=== PATIENT | male | born 1935 | race Hispanic/Latino ===

== ENCOUNTER 2017-09-05 14:26 | Inpatient (IN) | payer MEDICARE ==
[2017-09-07 17:11] VITALS: BMI 21.0
--- NOTE | 2017-09-07 18:15 | CP.PCM.HP ---
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 The patient was admitted and had echocardiogram and MUGA scan revealing low EF. The patient was then sent to [facility] for AICD placement which occurred on 08/26/17. The patient was noted to have ecchymosis on the left chest and arm upon arrival back to [facility] which are again seen today and are improving. The patient's dyspnea resolved and he is now being admitted to [facility] for further monitoring, PT/OT. He states he normally uses a rolling walker and a cane for ambulation. PMD: Dr. Baldwin Cobol Engineer: Dr. Pan Past Medical History: HTN; Afib; PVD; left heel ulcer (6 months); mandibular cyst Past Surgical History: TAVR - aortic valve replacement 09/2014; Pacemaker 09/2014 - last interrogated was last week; 2 veins removed in his left lower extremity ( 04/2017 and 2014) Medications: Plavix 75mg dialy; Valsartan 40mg daily; Crestor 5mg daily; Xarelta 10mg dialy; protonix 40mg daily; metoprolol tartrate 25mg daily; Lasix 40mg dialy; Fluoxetine 20mg daily Allergies: Penicillin - swelling Family History: Dad - heart disease; at 49yo due to coronary thrombosis; Mom - heart disease; paternal uncle - heart disease Social History: quit smoking 30 years ago; previously smoked for 20 years about 1ppd; drinks 1 beer on a Tuesday; denies illicit drug use; lives home 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 Present on Admission - Present on Admission Any Indicators Present on Admission: No History of DVT/PE: No Review of Systems - Review of Systems Review of Systems: A 12 - Hematologic/Lymphatic Additional comments: A 12 point review of systems was conducted and found to be negative other than what was mentioned in the HPI. Past Patient History - Infectious Disease Hx of Infectious Diseases: None - Past Medical History & Family History Past Medical History?: Yes - Past Social History Smoking Status: Former Smoker - CARDIAC Hx Atrial Fibrillation: Yes Hx Hypertension: Yes Hx Pacemaker: Yes ([employer]) - NEUROLOGICAL Hx Paralysis: No - HEMATOLOGICAL/ONCOLOGICAL Hx Blood Transfusions: No - MUSCULOSKELETAL/RHEUMATOLOGICAL Hx Arthritis: Yes - PSYCHIATRIC Hx Substance Use: No - SURGICAL HISTORY Hx Surgeries: Yes Other/Comment: pacemaker, valve replacement - ANESTHESIA Hx Anesthesia: Yes Hx Anesthesia Reactions: No Hx Malignant Hyperthermia: No Meds Allergies/Adverse Reactions: Allergies Allergy/AdvReac Type Severity Reaction Status Date / Time penicillin V Allergy Severe RASH/HIVES Verified 09/07/17 17:55 Physical Exam - Additional Findings Additional findings: Physical exam: Constitutional- cooperative, awake, alert Head- NCAT, PERRL, left submandibular angle lipoma Eye- PERRL, EOMI ENT- normal exam, MMM. Neck- normal inspection, supple, no JVD Respiratory- CTAB, no wheezes rales rhonchi Cardiovascular- irregular rate and rhythm, +S1, +S2 no MRG GI/Abdominal- normal bowel sounds, soft, no mass, no hsm Skin- warm, dry Extremities Exam- Bilateral lower extremity chronic venous insufficiency. + Left heel ulcer, chronic Neurological Exam- alert, awake, oriented Psych- normal mood, normal affect Assessment & Plan - Assessment and Plan (Free Text) Plan: 1) Deconditioning in the setting of significant cardiomyopathy and low EF - Admit to TCU - Consultation with Dr. Juarez, physiatry - PT/OT - Monitor for dyspnea 2) Atrial Fibrillation CHADS: 3 Patient is on Xarelto 10mg PO daily Metoprolol Succinate 75mg PO daily Echo 08/24 from [facility]- technically difficult and limited study, LV severely dialted, mild asymmetric left ventricular hypertrophy, left ventricle systolic function mildly impaired, EF 40%, global hypokinesis of left ventricle , left ventricle diastolic function is normal 3) History of Aortic Stenosis s/p TAVR 2014 with low Ejection Fraction - AICD placed 08/26 - Continue Xarelto 4) Hypertension Monitor vital signs Cozaar 25mg daily Metoprolol Succinate 75mg daily 5) Right sided foot ulcer - Consult wound care - Patient will need to schedule follow up with Dr. Hassan -Daily dressing changes: MediHoney and cover with OptiFoam Dressing 6) Peripheral Vascular Disease 2 veins removed in his left lower extremity (04/2017 and 2015) Plavix 75 mg PO 1x/day Crestor 5 mg PO 1x/day 7) History of Gastritis Pantoprazole 40mg dialy 8) History of Depression Fluoxetine 20mg PO daily 11) Prophylaxis Protonix 40mg PO daily Xarelto 10mg PO daily
[2017-09-08 07:00] LABS: HEMOGLOBIN 14.8 g/dL (12.0-18.0); MEAN CELL VOLUME 97.6 fl (80.0-94.0); MEAN CORPUSCULAR HEMOGLOBIN 33.5 pg (27.0-31.0); MEAN CORPUSCULAR HGB CONC 34.3 g/dL (33.0-37.0); RBC 4.42 Mil/uL (4.40-5.90); RED CELL DISTRIBUTION WIDTH 14.9 % (11.5-14.5); WHITE BLOOD COUNT 5.6 K/uL (4.8-10.8)
[2017-09-08 07:14] LABS: BLOOD UREA NITROGEN 12 mg/dl (9-20); GFR NON-AFRICAN AMERICAN > 60
[2017-09-08] MEDS: Pantoprazole 40 mg EC Tab PO SCH (10:18)
[2017-09-08] MEDS: Metoprolol Succinate 25 mg XL Tab PO SCH (10:19)
[2017-09-08] MEDS ORDERED: Potassium Chloride 20 mEq ER Tab PO ONE (11:20)
[2017-09-09] MEDS: Pantoprazole 40 mg EC Tab PO SCH (09:08)
[2017-09-09] MEDS: Metoprolol Succinate 25 mg XL Tab PO SCH (09:09)
--- NOTE | 2017-09-09 12:53 | CP.PCM.CON ---
History of Present Illness - History of Present Illness History of Present Illness: Dr Juarez PMR consultation on Yazan Son, born 1935 who has been admitted to the [facility] for [place] following placement of AICD for low EF. He has multiple other medical conditions and even had a near syncopal episode in therapies this morning. EKG done and doing down for further testing. He feels ok now long standing left foot ulcer lives alone Review of Systems - Constitutional Constitutional: absent: Anorexia, Chills - EENT Eyes: absent: Change in Vision Ears: absent: Ear Discharge Nose/Mouth/Throat: absent: Nasal Congestion - Cardiovascular Cardiovascular: absent: Chest Pain, Diaphoresis - Respiratory Respiratory: absent: Dyspnea, Hemoptysis - Gastrointestinal Gastrointestinal: absent: Belching, Constipation Past Patient History - Infectious Disease Hx of Infectious Diseases: None - Past Medical History & Family History Past Medical History?: Yes - Past Social History Smoking Status: Former Smoker Drugs: Denies Home Situation {Lives}: Alone (stairs, uses a QC) - CARDIAC Hx Atrial Fibrillation: Yes Hx Hypertension: Yes Hx Pacemaker: Yes ([employer]) - PULMONARY Hx Bronchitis: Yes - NEUROLOGICAL Hx Paralysis: No - HEMATOLOGICAL/ONCOLOGICAL Hx Blood Transfusions: No - MUSCULOSKELETAL/RHEUMATOLOGICAL Hx Arthritis: Yes - PSYCHIATRIC Hx Substance Use: No - SURGICAL HISTORY Hx Surgeries: Yes Other/Comment: pacemaker, valve replacement - ANESTHESIA Hx Anesthesia: Yes Hx Anesthesia Reactions: No Hx Malignant Hyperthermia: No Meds Allergies/Adverse Reactions: Allergies Allergy/AdvReac Type Severity Reaction Status Date / Time penicillin V Allergy Severe RASH/HIVES Verified 09/07/17 17:55 - Medications Medications: Current Medications Acetaminophen (Tylenol 325mg Tab) 650 mg PO Q4 PRN PRN Reason: Pain, Mild (1-3) Last Admin: 09/08/17 21:42 Dose: 650 mg Atorvastatin Calcium (Lipitor) 10 mg PO DAILY [facility] Last Admin: 09/09/17 09:10 Dose: 10 mg Clopidogrel Bisulfate (Plavix) 75 mg PO DAILY [facility] Last Admin: 09/09/17 09:07 Dose: 75 mg Fluoxetine HCl (Prozac) 20 mg PO DAILY [facility] Last Admin: 09/09/17 09:07 Dose: 20 mg Furosemide (Lasix) 40 mg PO DAILY [facility] Last Admin: 09/09/17 09:09 Dose: 40 mg Losartan Potassium (Cozaar) 25 mg PO DAILY [facility] Last Admin: 09/09/17 09:10 Dose: 25 mg Metoprolol Succinate (Toprol Xl) 75 mg PO DAILY [facility] Last Admin: 09/09/17 09:09 Dose: 75 mg Pantoprazole Sodium (Protonix Ec Tab) 40 mg PO DAILY [facility] Last Admin: 09/09/17 09:08 Dose: 40 mg Rivaroxaban (Xarelto) 10 mg PO DAILY [facility] PRN Reason: Protocol Last Admin: 09/09/17 09:07 Dose: 10 mg Physical Exam - Constitutional Appears: Non-toxic - Eye Exam Eye Exam: EOMI - ENT Exam ENT Exam: Mucous Membranes Moist - Respiratory Exam Respiratory Exam: NORMAL BREATHING PATTERN Results - Vital Signs Recent Vital Signs: Last Vital Signs Temp 97.2 F L 09/09/17 07:58 Pulse 87 09/09/17 09:10 Resp 20 09/09/17 07:58 BP 114/45 L 09/09/17 09:10 Pulse Ox 98 09/09/17 07:58 - Labs Result Diagrams: 09/08/17 06:30 09/08/17 06:30 Assessment & Plan - Assessment and Plan (Free Text) Assessment: 82 year old male with multiple medical conditions with non-healing left LE ulcer and deconditioning therapies to increase his function pain is controlled continue current care I will re-evaluate after he is done with testing
[2017-09-10] MEDS: Pantoprazole 40 mg EC Tab PO SCH (08:56)
[2017-09-10] MEDS: Metoprolol Succinate 25 mg XL Tab PO SCH (08:56)
[2017-09-11] MEDS: Pantoprazole 40 mg EC Tab PO SCH (08:55)
[2017-09-11] MEDS: Metoprolol Succinate 25 mg XL Tab PO SCH (08:55)
[2017-09-12] MEDS: Pantoprazole 40 mg EC Tab PO SCH (08:36)
[2017-09-12] MEDS: Metoprolol Succinate 25 mg XL Tab PO SCH (08:37)
--- NOTE | 2017-09-12 13:59 | CARD ---
APPROVED REPORT Date of service: 09/09/2017 EKG Measurement Heart [id number] <Conclusion> Atrial fibrillation with frequent ventricular-paced complexes and with premature ventricular or aberrantly conducted complexe Left axis deviation Left bundle branch block Abnormal ECG
--- NOTE | 2017-09-12 20:05 | CP.PCM.PN ---
Subjective - Date & Time of Evaluation Date of Evaluation: 09/12/17 Time of Evaluation: 20:05 - Subjective Subjective: Patient seen in the room doing well denies sob/cp no joint pain ambulating 60' in therapies continue current care Objective - Vital Signs/Intake and Output Vital Signs (last 24 hours): Temp Pulse Resp BP Pulse Ox 97.7 F 79 20 97/51 L 98 09/12/17 19:42 09/12/17 19:42 09/12/17 19:42 09/12/17 19:42 09/12/17 19:42 - Medications Medications: Current Medications Acetaminophen (Tylenol 325mg Tab) 650 mg PO Q4 PRN PRN Reason: Pain, Mild (1-3) Last Admin: 09/11/17 21:52 Dose: 650 mg Atorvastatin Calcium (Lipitor) 10 mg PO DAILY [facility] Last Admin: 09/12/17 08:36 Dose: 10 mg Clopidogrel Bisulfate (Plavix) 75 mg PO DAILY [facility] Last Admin: 09/12/17 08:36 Dose: 75 mg Fluoxetine HCl (Prozac) 20 mg PO DAILY [facility] Last Admin: 09/12/17 08:36 Dose: 20 mg Furosemide (Lasix) 40 mg PO DAILY [facility] Last Admin: 09/12/17 08:36 Dose: 40 mg Losartan Potassium (Cozaar) 25 mg PO DAILY [facility] Last Admin: 09/12/17 08:35 Dose: 25 mg Metoprolol Succinate (Toprol Xl) 75 mg PO DAILY [facility] Last Admin: 09/12/17 08:37 Dose: 75 mg Pantoprazole Sodium (Protonix Ec Tab) 40 mg PO DAILY [facility] Last Admin: 09/12/17 08:36 Dose: 40 mg Rivaroxaban (Xarelto) 10 mg PO DAILY [facility] PRN Reason: Protocol Last Admin: 09/12/17 08:37 Dose: 10 mg - Labs Labs: 09/08/17 06:30 09/08/17 06:30
[2017-09-13] MEDS: Pantoprazole 40 mg EC Tab PO SCH (08:38)
[2017-09-13] MEDS: Metoprolol Succinate 25 mg XL Tab PO SCH (08:40)
--- NOTE | 2017-09-13 15:59 | CP.PCM.CON ---
History of Present Illness - History of Present Illness History of Present Illness: Podiatry consult notes for attending Valerie Wheat 82 y/o M patient seen and evaluated at the bed side for a left lateral malleolar ulcer. Patient ulcer was dressed and the patient was wearing a surgical shoe.Patient states that he has this ulcer since 6 months when he stuck his foot into the wall . Patient states that it got worse at 1st but the he followed up with Hadley Wheat at [place] [facility] and it got better. Patient states that he is admitted now cause he has congestive heart failure. Patient is AAO X 3. Patient is in no acute distress. Patient denies any F/N/V/ C. Patient denies any other pedal complaint. Past Patient History - Infectious Disease Hx of Infectious Diseases: None - Past Medical History & Family History Past Medical History?: Yes - Past Social History Smoking Status: Former Smoker Drugs: Denies Home Situation {Lives}: Alone (stairs, uses a QC) - CARDIAC Hx Atrial Fibrillation: Yes Hx Hypertension: Yes Hx Pacemaker: Yes ([employer]) - PULMONARY Hx Bronchitis: Yes - NEUROLOGICAL Hx Paralysis: No - HEMATOLOGICAL/ONCOLOGICAL Hx Blood Transfusions: No - MUSCULOSKELETAL/RHEUMATOLOGICAL Hx Arthritis: Yes - PSYCHIATRIC Hx Substance Use: No - SURGICAL HISTORY Hx Surgeries: Yes Other/Comment: pacemaker, valve replacement - ANESTHESIA Hx Anesthesia: Yes Hx Anesthesia Reactions: No Hx Malignant Hyperthermia: No Meds Allergies/Adverse Reactions: Allergies Allergy/AdvReac Type Severity Reaction Status Date / Time penicillin V Allergy Severe RASH/HIVES Verified 09/07/17 17:55 - Medications Medications: Current Medications Acetaminophen (Tylenol 325mg Tab) 650 mg PO Q4 PRN PRN Reason: Pain, Mild (1-3) Last Admin: 09/13/17 08:42 Dose: 650 mg Atorvastatin Calcium (Lipitor) 10 mg PO DAILY [facility] Last Admin: 09/13/17 08:40 Dose: 10 mg Clopidogrel Bisulfate (Plavix) 75 mg PO DAILY [facility] Last Admin: 09/13/17 08:38 Dose: 75 mg Fluoxetine HCl (Prozac) 20 mg PO DAILY [facility] Last Admin: 09/13/17 08:39 Dose: 20 mg Furosemide (Lasix) 40 mg PO DAILY [facility] Last Admin: 09/13/17 08:39 Dose: 40 mg Losartan Potassium (Cozaar) 25 mg PO DAILY [facility] Last Admin: 09/13/17 08:39 Dose: 25 mg Metoprolol Succinate (Toprol Xl) 75 mg PO DAILY [facility] Last Admin: 09/13/17 08:40 Dose: 75 mg Pantoprazole Sodium (Protonix Ec Tab) 40 mg PO DAILY [facility] Last Admin: 09/13/17 08:38 Dose: 40 mg Rivaroxaban (Xarelto) 10 mg PO DAILY [facility] PRN Reason: Protocol Last Admin: 09/13/17 08:38 Dose: 10 mg Physical Exam - Constitutional Appears: Well, Non-toxic, No Acute Distress - Head Exam Head Exam: ATRAUMATIC, NORMOCEPHALIC - Extremities Exam Additional comments: left lower extremity focused exam: Vasc: DP/PT 2/4, Cap refill delayed about 5 sec. Temp gradient warm to cool from proximal to distal. +2 pitting edema extending up to the level of the tibial tuberosity. Neuro: Gross sensation intact, protective sensation diminished. Derm: Open ulcer noted at the lateral aspect of the left medial malleolous. the ulcer is linear in shpe measuring 9 cm X 3.5 cm X 0.3 cm. the edges are rounded , base is granular 100%, no malodor or drainage, No undermining, No tracking or probing to bone. No drainage. No signs of active bacterial infection. MSK: Muscle power 5/5 in all muscle groups b/l. - Neurological Exam Neurological exam: Alert, Oriented x3 - Psychiatric Exam Psychiatric exam: Normal Affect, Normal Mood Results - Vital Signs Recent Vital Signs: Last Vital Signs Temp 97.7 F 09/13/17 08:12 Pulse 77 09/13/17 08:40 Resp 20 09/13/17 08:12 BP 120/56 L 09/13/17 08:40 Pulse Ox 97 09/13/17 08:12 - Labs Result Diagrams: 09/08/17 06:30 09/08/17 06:30 Assessment & Plan - Assessment and Plan (Free Text) Assessment: 82 y/o M patient seen and evaluated at the bed side for a left lateral malleolar ulcer Plan: Patient seen and evaluated at the bedside Plan discussed in details with the attending Valerie Wheat Chart, Labs and vitals reviewed; Afebrile, No leukocytosis. Dressing change using DSD, ABD, Kurlix and medi-honey Patient instructed to continue wearing the surgical shoe. Patient expressed verbal understanding Patient to be F/U in house by the podiatry service. - Date & Time Date: 09/13/17 Time: 16:35
--- NOTE | 2017-09-13 17:01 | CP.PCM.PN ---
Subjective - Date & Time of Evaluation Date of Evaluation: 09/13/17 Time of Evaluation: 11:23 - Subjective Subjective: doing well with pt was in wheel chair Objective - Vital Signs/Intake and Output Vital Signs (last 24 hours): Temp Pulse Resp BP Pulse Ox 98.1 F 85 20 139/54 L 97 09/13/17 15:57 09/13/17 15:57 09/13/17 15:57 09/13/17 15:57 09/13/17 15:57 - Medications Medications: Current Medications Acetaminophen (Tylenol 325mg Tab) 650 mg PO Q4 PRN PRN Reason: Pain, Mild (1-3) Last Admin: 09/13/17 08:42 Dose: 650 mg Atorvastatin Calcium (Lipitor) 10 mg PO DAILY [facility] Last Admin: 09/13/17 08:40 Dose: 10 mg Clopidogrel Bisulfate (Plavix) 75 mg PO DAILY [facility] Last Admin: 09/13/17 08:38 Dose: 75 mg Fluoxetine HCl (Prozac) 20 mg PO DAILY [facility] Last Admin: 09/13/17 08:39 Dose: 20 mg Furosemide (Lasix) 40 mg PO DAILY [facility] Last Admin: 09/13/17 08:39 Dose: 40 mg Losartan Potassium (Cozaar) 25 mg PO DAILY [facility] Last Admin: 09/13/17 08:39 Dose: 25 mg Metoprolol Succinate (Toprol Xl) 75 mg PO DAILY [facility] Last Admin: 09/13/17 08:40 Dose: 75 mg Pantoprazole Sodium (Protonix Ec Tab) 40 mg PO DAILY [facility] Last Admin: 09/13/17 08:38 Dose: 40 mg Rivaroxaban (Xarelto) 10 mg PO DAILY [facility] PRN Reason: Protocol Last Admin: 09/13/17 08:38 Dose: 10 mg - Labs Labs: 09/08/17 06:30 09/08/17 06:30 - Constitutional Appears: Well, Non-toxic, No Acute Distress - Head Exam Head Exam: ATRAUMATIC - Respiratory Exam Respiratory Exam: Clear to Ausculation Bilateral, NORMAL BREATHING PATTERN - Cardiovascular Exam Cardiovascular Exam: REGULAR RHYTHM, +S1, +S2 - GI/Abdominal Exam GI & Abdominal Exam: Soft, Normal Bowel Sounds. absent: Tenderness - Neurological Exam Neurological Exam: Alert, Awake, Oriented x3 Assessment and Plan - Assessment and Plan (Free Text) Assessment: 1) Deconditioning in the setting of significant cardiomyopathy and low EF - Consultation with Dr. Juarez, physiatry - PT/OT - Monitor for dyspnea 2) Atrial Fibrillation CHADS: 3 Patient is on Xarelto 10mg PO daily Metoprolol Succinate 75mg PO daily Echo 08/24 from [facility]- technically difficult and limited study, LV severely dialted, mild asymmetric left ventricular hypertrophy, left ventricle systolic function mildly impaired, EF 40%, global hypokinesis of left ventricle , left ventricle diastolic function is normal 3) History of Aortic Stenosis s/p TAVR 2014 with low Ejection Fraction - AICD placed 08/26 - Continue Xarelto 4) Hypertension Monitor vital signs Cozaar 25mg daily Metoprolol Succinate 75mg daily 5) Right sided foot ulcer - Consult wound care - Patient will need to schedule follow up with Dr. Hassan -Daily dressing changes: MediHoney and cover with OptiFoam Dressing 6) Peripheral Vascular Disease 2 veins removed in his left lower extremity (04/2017 and 2014) Plavix 75 mg PO 1x/day Crestor 5 mg PO 1x/day 7) History of Gastritis Pantoprazole 40mg dialy 8) History of Depression Fluoxetine 20mg PO daily 9) Prophylaxis Protonix 40mg PO daily Xarelto 10mg PO daily
[2017-09-14] MEDS ORDERED: Albuterol 0.083% Inhal Sol (2.5 mg/3 mL) UD INH STA (03:39)
[2017-09-14] MEDS: CORTISPORIN OU SCH ×4 (06:45→17:22)
[2017-09-14] MEDS: Pantoprazole 40 mg EC Tab PO SCH (09:01)
[2017-09-14] MEDS: Metoprolol Succinate 25 mg XL Tab PO SCH (09:02)
[2017-09-14] MEDS: guaiFENesin DM 100 mg-10 mg/5 ml UD PO PRN ×3 (12:55→21:46)
--- NOTE | 2017-09-14 18:52 | CP.PCM.PN ---
Subjective - Date & Time of Evaluation Date of Evaluation: 09/14/17 Time of Evaluation: 18:48 - Subjective Subjective: Podiatry progress notes for attending Jose Wheat: 82 y/o M patient seen and evaluated at the bedside for left medial malleolar ulcer. Patient was sitting comfortably in the chair beside the bed. patient is AAOX3 and NAD. Patient denies any pain in the ulcer site. patient denies any overnight acute events. patient denies any F/N/V/C overnight. Patient denies any other pedal complaint. Objective - Vital Signs/Intake and Output Vital Signs (last 24 hours): Temp Pulse Resp BP Pulse Ox 98.6 F 73 20 132/66 100 09/14/17 16:31 09/14/17 16:31 09/14/17 16:31 09/14/17 16:31 09/14/17 16:31 - Medications Medications: Current Medications Acetaminophen (Tylenol 325mg Tab) 650 mg PO Q4 PRN PRN Reason: Pain, Mild (1-3) Last Admin: 09/13/17 21:57 Dose: 650 mg Atorvastatin Calcium (Lipitor) 10 mg PO DAILY@2100 [facility] Clopidogrel Bisulfate (Plavix) 75 mg PO DAILY [facility] Last Admin: 09/14/17 09:00 Dose: 75 mg Fluoxetine HCl (Prozac) 20 mg PO DAILY [facility] Last Admin: 09/14/17 09:00 Dose: 20 mg Furosemide (Lasix) 40 mg PO DAILY [facility] Last Admin: 09/14/17 09:00 Dose: 40 mg Guaifenesin/Dextromethorphan (Robitussin Dm) 5 ml PO Q4 PRN PRN Reason: Cough Last Admin: 09/14/17 17:22 Dose: 5 ml Losartan Potassium (Cozaar) 25 mg PO DAILY [facility] Last Admin: 09/14/17 09:01 Dose: 25 mg Metoprolol Succinate (Toprol Xl) 75 mg PO DAILYWM [facility] Neomycin/Polymyxin/Hydrocortisone (Cortisporin Opht Susp) 2 drop OU TID [facility] Last Admin: 09/14/17 17:22 Dose: 2 drop Pantoprazole Sodium (Protonix Ec Tab) 40 mg PO DAILY [facility] Last Admin: 09/14/17 09:01 Dose: 40 mg Rivaroxaban (Xarelto) 10 mg PO DAILY [facility] PRN Reason: Protocol Last Admin: 09/14/17 09:02 Dose: 10 mg - Labs Labs: 09/08/17 06:30 09/08/17 06:30 - Constitutional Appears: Well, Non-toxic, No Acute Distress - Head Exam Head Exam: ATRAUMATIC, NORMOCEPHALIC - Extremities Exam Additional comments: Left lower extremity focused exam: Vasc: DP/PT 2/4. Cap refill delayed 5 sec in all digits. Temp gradient warm to cool from proximal to distal. +2 pitting edema extending up to the level of tibial tuberosity. Neuro: Gross sensation intact, protective sensation diminished. Derm: OPen ulcer at the left medial malleolous. linear in shape measured 9cm X 3.5 cm X 0.3. Base is granular and covered by thin yellowish film. No malodor, no drainage. No tracking, no probing to bone and no undermining. MSK: Muscle power intact 5/5 in all muscle groups. - Neurological Exam Neurological Exam: Alert, Awake, Oriented x3 - Psychiatric Exam Psychiatric exam: Normal Affect, Normal Mood Assessment and Plan - Assessment and Plan (Free Text) Assessment: 82 y/o M patient seen and evaluated at the bed side for a left medial malleolar ulcer. Plan: Patient seen and evaluated at the bedside with atting Jose Wheat. Plan discussed with Jose Wheat. Chart, Labs and vitals reviewed: afebrile, no leukocytosis Dressing change done using medihoney, DSD and kerlix Patient instructed to continue wearing the surgical shoe while ambulating. Patient expressed verbal understanding. Patient to be followed up in house by the podiatry team.
[2017-09-15] MEDS: guaiFENesin DM 100 mg-10 mg/5 ml UD PO PRN ×4 (03:13→21:27)
[2017-09-15] MEDS ORDERED: Albuterol 0.083% Inhal Sol (2.5 mg/3 mL) UD INH ONE (04:12)
--- NOTE | 2017-09-15 06:42 | CP.PCM.PN ---
Subjective - Date & Time of Evaluation Date of Evaluation: 09/15/17 Time of Evaluation: 06:40 - Subjective Subjective: Podiatry progress notes for attending Jose Wheat: 82 y/o M patient seen and evaluated at the bedside for left medial malleolar ulcer. Patient was sitting comfortably in bed. patient is AAOX3 and NAD. Patient denies any pain in the ulcer site. patient denies any overnight acute events. patient denies any F/N/V/C overnight. Patient denies any other pedal complaint. Objective - Vital Signs/Intake and Output Vital Signs (last 24 hours): Temp Pulse Resp BP Pulse Ox 98.1 F 89 20 108/51 L 99 09/14/17 21:46 09/14/17 21:46 09/14/17 21:46 09/14/17 21:46 09/14/17 21:46 - Medications Medications: Current Medications Acetaminophen (Tylenol 325mg Tab) 650 mg PO Q4 PRN PRN Reason: Pain, Mild (1-3) Last Admin: 09/14/17 21:05 Dose: 650 mg Atorvastatin Calcium (Lipitor) 10 mg PO DAILY@2100 [facility] Last Admin: 09/14/17 21:43 Dose: 10 mg Clopidogrel Bisulfate (Plavix) 75 mg PO DAILY [facility] Last Admin: 09/14/17 09:00 Dose: 75 mg Fluoxetine HCl (Prozac) 20 mg PO DAILY [facility] Last Admin: 09/14/17 09:00 Dose: 20 mg Furosemide (Lasix) 40 mg PO DAILY [facility] Last Admin: 09/14/17 09:00 Dose: 40 mg Guaifenesin/Dextromethorphan (Robitussin Dm) 5 ml PO Q4 PRN PRN Reason: Cough Last Admin: 09/15/17 03:13 Dose: 5 ml Losartan Potassium (Cozaar) 25 mg PO DAILY [facility] Last Admin: 09/14/17 09:01 Dose: 25 mg Metoprolol Succinate (Toprol Xl) 75 mg PO DAILYM [facility] Neomycin/Polymyxin/Hydrocortisone (Cortisporin Opht Susp) 2 drop OU TID [facility] Last Admin: 09/14/17 17:22 Dose: 2 drop Pantoprazole Sodium (Protonix Ec Tab) 40 mg PO DAILY [facility] Last Admin: 09/14/17 09:01 Dose: 40 mg Rivaroxaban (Xarelto) 10 mg PO DAILY [facility] PRN Reason: Protocol Last Admin: 09/14/17 09:02 Dose: 10 mg - Labs Labs: 09/08/17 06:30 09/08/17 06:30 - Constitutional Appears: Well, Non-toxic, No Acute Distress - Head Exam Head Exam: ATRAUMATIC, NORMOCEPHALIC - Extremities Exam Additional comments: Left lower extremity focused exam: Vasc: DP/PT 2/4. Cap refill delayed 5 sec in all digits. Temp gradient warm to cool from proximal to distal. +2 pitting edema extending below the level of tibial tuberosity. Neuro: Gross sensation intact, protective sensation diminished. Derm: Open ulcer at the left medial malleolous. linear in shape measured 9cm X 3.5 cm X 0.3. Base is granular and covered by thin yellowish film. No malodor, no drainage. No tracking, no probing to bone and no undermining. MSK: Muscle power intact 5/5 in all muscle groups. - Neurological Exam Neurological Exam: Alert, Awake, Oriented x3 - Psychiatric Exam Psychiatric exam: Normal Affect, Normal Mood Assessment and Plan - Assessment and Plan (Free Text) Assessment: 82 y/o M patient seen and evaluated at the bed side for a left medial malleolar ulcer. Plan: Patient seen and evaluated at the bedside with atting Jose Wheat. Plan discussed with Jose Wheat. Chart, Labs and vitals reviewed: afebrile, no leukocytosis The yellow film at the ulcer base removed using 4 X 4 sterile gauze. Dressing change done using medihoney, DSD and kerlix Patient instructed to continue wearing the surgical shoe while ambulating. Patient expressed verbal understanding. Patient to be followed up in house by the podiatry team.
[2017-09-15] MEDS: Metoprolol Succinate 25 mg XL Tab PO SCH (08:19)
[2017-09-15] MEDS: Pantoprazole 40 mg EC Tab PO SCH (08:19)
[2017-09-15] MEDS: CORTISPORIN OU SCH ×3 (08:21→16:54)
--- NOTE | 2017-09-15 11:15 | CP.PCM.PN ---
Subjective - Date & Time of Evaluation Date of Evaluation: 09/15/17 Time of Evaluation: 10:15 - Subjective Subjective: Patient seen and examined. Complained of knee pain during therapy. Objective - Vital Signs/Intake and Output Vital Signs (last 24 hours): Temp Pulse Resp BP Pulse Ox 97.2 F L 99 H 20 118/55 L 98 09/15/17 08:19 09/15/17 08:21 09/15/17 08:19 09/15/17 08:21 09/15/17 08:19 - Medications Medications: Current Medications Acetaminophen (Tylenol 325mg Tab) 650 mg PO Q4 PRN PRN Reason: Pain, Mild (1-3) Last Admin: 09/14/17 21:05 Dose: 650 mg Atorvastatin Calcium (Lipitor) 10 mg PO DAILY@2100 [facility] Last Admin: 09/14/17 21:43 Dose: 10 mg Clopidogrel Bisulfate (Plavix) 75 mg PO DAILY [facility] Last Admin: 09/15/17 08:20 Dose: 75 mg Fluoxetine HCl (Prozac) 20 mg PO DAILY [facility] Last Admin: 09/15/17 08:20 Dose: 20 mg Furosemide (Lasix) 40 mg PO DAILY [facility] Last Admin: 09/15/17 08:20 Dose: 40 mg Guaifenesin/Dextromethorphan (Robitussin Dm) 5 ml PO Q4 PRN PRN Reason: Cough Last Admin: 09/15/17 08:18 Dose: 5 ml Losartan Potassium (Cozaar) 25 mg PO DAILY [facility] Last Admin: 09/15/17 08:21 Dose: 25 mg Metoprolol Succinate (Toprol Xl) 75 mg PO DAILYWM [facility] Last Admin: 09/15/17 08:19 Dose: 75 mg Neomycin/Polymyxin/Hydrocortisone (Cortisporin Opht Susp) 2 drop OU TID [facility] Last Admin: 09/15/17 08:21 Dose: 2 drop Pantoprazole Sodium (Protonix Ec Tab) 40 mg PO DAILY [facility] Last Admin: 09/15/17 08:19 Dose: 40 mg - Labs Labs: 09/08/17 06:30 09/08/17 06:30 - Constitutional Appears: No Acute Distress - Head Exam Head Exam: ATRAUMATIC - Eye Exam Eye Exam: absent: Scleral icterus - ENT Exam ENT Exam: Mucous Membranes Moist - Neck Exam Neck Exam: absent: Meningismus - Respiratory Exam Respiratory Exam: absent: Rales, Rhonchi, Wheezes, Respiratory Distress - Cardiovascular Exam Cardiovascular Exam: Irregular Rhythm - GI/Abdominal Exam GI & Abdominal Exam: Soft. absent: Tenderness - Rectal Exam Rectal Exam: Deferred - Extremities Exam Extremities Exam: absent: Normal Inspection (left foot wrapped with clean and dry dressing) - Neurological Exam Neurological Exam: Alert, Oriented x3 - Psychiatric Exam Psychiatric exam: Normal Affect - Skin Skin Exam: Dry, Intact Assessment and Plan - Assessment and Plan (Free Text) Assessment: 82 yo male with history of Chronic AFib, Aortic Stenosis s/p TAVR, CAD, HTN, PVD , Chronic Ulcer of the Left Foot and Dilated Cardiomyopathy admitted initially at [facility] on 08/22/17 because of SOB probably secondary to faulty pacemaker. He was sent to [facility] to replace pacemaker with AICD on and was sent back to [facility]. His condition improved and on he was transferred to [facility] and admitted in TCU for continuation of management and physical therapy for deconditioning. 1. Deconditioning in the setting of Dilated Cardiomyopathy continue PT/OT 2. Chronic AFib rate controlled continue Xarelto and Metoprolol 3. Aortic Stenosis S/P TAVR AICD in placed 4. HTN BP stable on Losartan and Metoprolol 5. Chronic Foot Ulcer podiatry on board wound care 6. PVD on Crestor and Plavix
--- NOTE | 2017-09-16 07:25 | CP.PCM.PN ---
Subjective - Date & Time of Evaluation Date of Evaluation: 09/16/17 Time of Evaluation: 07:24 - Subjective Subjective: Podiatry progress notes for attending Jose Wheat: 82 y/o M patient seen and evaluated at the bedside for left medial malleolar ulcer. Patient was sitting comfortably in bed. patient is AAOX3 and in no acute distress. Patient denies any pain in the ulcer site. patient denies any overnight acute events. patient denies any F/N/V/C overnight. Patient denies any other pedal complaint. Objective - Vital Signs/Intake and Output Vital Signs (last 24 hours): Temp Pulse Resp BP Pulse Ox 97.7 F 85 20 122/52 L 98 09/15/17 19:42 09/15/17 19:42 09/15/17 19:42 09/15/17 19:42 09/15/17 19:42 - Medications Medications: Current Medications Acetaminophen (Tylenol 325mg Tab) 650 mg PO Q4 PRN PRN Reason: Pain, Mild (1-3) Last Admin: 09/15/17 21:28 Dose: 650 mg Albuterol Sulfate (Albuterol 0.042% Inhal Jud (1.25mg/3ml) Ud) 1.25 mg INH RQ4 PRN PRN Reason: Shortness of Breath Atorvastatin Calcium (Lipitor) 10 mg PO DAILY@2100 [facility] Last Admin: 09/15/17 21:27 Dose: 10 mg Clopidogrel Bisulfate (Plavix) 75 mg PO DAILY [facility] Last Admin: 09/15/17 08:20 Dose: 75 mg Fluoxetine HCl (Prozac) 20 mg PO DAILY [facility] Last Admin: 09/15/17 08:20 Dose: 20 mg Furosemide (Lasix) 40 mg PO DAILY [facility] Last Admin: 09/15/17 08:20 Dose: 40 mg Guaifenesin/Dextromethorphan (Robitussin Dm) 5 ml PO Q4 PRN PRN Reason: Cough Last Admin: 09/15/17 21:27 Dose: 5 ml Losartan Potassium (Cozaar) 25 mg PO DAILY [facility] Last Admin: 09/15/17 08:21 Dose: 25 mg Metoprolol Succinate (Toprol Xl) 75 mg PO DAILYWM [facility] Last Admin: 09/15/17 08:19 Dose: 75 mg Neomycin/Polymyxin/Hydrocortisone (Cortisporin Opht Susp) 2 drop OU TID [facility] Last Admin: 09/15/17 16:54 Dose: 2 drop Pantoprazole Sodium (Protonix Ec Tab) 40 mg PO DAILY [facility] Last Admin: 09/15/17 08:19 Dose: 40 mg Rivaroxaban (Xarelto) 10 mg PO QD5 [facility] PRN Reason: Protocol Last Admin: 09/15/17 16:54 Dose: Not Given - Labs Labs: 09/08/17 06:30 09/08/17 06:30 - Constitutional Appears: Well, Non-toxic, No Acute Distress - Head Exam Head Exam: ATRAUMATIC, NORMOCEPHALIC - Extremities Exam Additional comments: Left lower extremity focused exam: Vasc: DP/PT 2/4. Cap refill delayed 5 sec in all digits. Temp gradient warm to cool from proximal to distal. +2 pitting edema extending from the midcalf distally. Neuro: Gross sensation intact, protective sensation diminished. Derm: Open ulcer at the left medial malleolous. linear in shape measured 9cm X 3.5 cm X 0.3. Base is granular and covered by thin yellow film. No malodor, no drainage. No tracking, no probing to bone and no undermining. MSK: Muscle power intact 5/5 in all muscle groups. Artheritic restricted ROM of all the major joints of foot and ankle. - Neurological Exam Neurological Exam: Alert, Awake, Oriented x3 - Psychiatric Exam Psychiatric exam: Normal Affect, Normal Mood Assessment and Plan - Assessment and Plan (Free Text) Assessment: 82 y/o M patient seen and evaluated at the bed side for a left medial malleolar ulcer. Plan: Patient seen and evaluated at the bedside with atting Jose Wheat. Plan discussed with Jose Wheat. Chart, Labs and vitals reviewed: afebrile, no leukocytosis The yellow film at the ulcer base removed using 4 X 4 sterile gauze. Dressing change done using DSD and kerlix Patient instructed to continue wearing the surgical shoe while ambulating. Patient expressed verbal understanding. Patient to be followed up in house by the podiatry team.
[2017-09-16] MEDS: CORTISPORIN OU SCH ×3 (08:28→17:18)
[2017-09-16] MEDS: Metoprolol Succinate 25 mg XL Tab PO SCH (08:31)
[2017-09-16] MEDS: Pantoprazole 40 mg EC Tab PO SCH (08:32)
[2017-09-16] MEDS: guaiFENesin DM 100 mg-10 mg/5 ml UD PO PRN ×2 (08:34→23:33)
[2017-09-16] MEDS ORDERED: Triamcinolone Acetonide 40 mg/mL Inj IAA ONE (14:10)
[2017-09-16] MEDS ORDERED: Dexamethasone 4 mg/1 ml IAA ONE (14:10)
[2017-09-16] MEDS ORDERED: Lidocaine 1% (10 ml) Inj IAA ONE (14:10)
--- NOTE | 2017-09-16 14:12 | CP.PCM.PN ---
Subjective - Date & Time of Evaluation Date of Evaluation: 09/16/17 Time of Evaluation: 14:11 - Subjective Subjective: Patient seen in PT, noting persistent left knee pain we had discussed this and he normally gets injections with dr huitron but it has been over three months and he is due he would like to proceed with an injection at this time meds ordered Objective - Vital Signs/Intake and Output Vital Signs (last 24 hours): Temp Pulse Resp BP Pulse Ox 97.1 F L 68 20 113/71 98 09/16/17 08:45 09/16/17 08:45 09/16/17 08:45 09/16/17 08:45 09/16/17 08:45 - Medications Medications: Current Medications Acetaminophen (Tylenol 325mg Tab) 650 mg PO Q4 PRN PRN Reason: Pain, Mild (1-3) Last Admin: 09/15/17 21:28 Dose: 650 mg Albuterol Sulfate (Albuterol 0.042% Inhal Jud (1.25mg/3ml) Ud) 1.25 mg INH RQ4 PRN PRN Reason: Shortness of Breath Atorvastatin Calcium (Lipitor) 10 mg PO DAILY@2100 [facility] Last Admin: 09/15/17 21:27 Dose: 10 mg Clopidogrel Bisulfate (Plavix) 75 mg PO DAILY [facility] Last Admin: 09/16/17 08:32 Dose: 75 mg Fluoxetine HCl (Prozac) 20 mg PO DAILY [facility] Last Admin: 09/16/17 08:32 Dose: 20 mg Furosemide (Lasix) 40 mg PO DAILY [facility] Last Admin: 09/16/17 08:31 Dose: 40 mg Guaifenesin/Dextromethorphan (Robitussin Dm) 5 ml PO Q4 PRN PRN Reason: Cough Last Admin: 09/16/17 08:34 Dose: 5 ml Losartan Potassium (Cozaar) 25 mg PO DAILY [facility] Last Admin: 09/16/17 08:32 Dose: 25 mg Metoprolol Succinate (Toprol Xl) 75 mg PO DAILYWM [facility] Last Admin: 09/16/17 08:31 Dose: 75 mg Neomycin/Polymyxin/Hydrocortisone (Cortisporin Opht Susp) 2 drop OU TID [facility] Last Admin: 09/16/17 08:28 Dose: 2 drop Pantoprazole Sodium (Protonix Ec Tab) 40 mg PO DAILY [facility] Last Admin: 09/16/17 08:32 Dose: 40 mg Rivaroxaban (Xarelto) 10 mg PO QD5 [facility] PRN Reason: Protocol Last Admin: 09/15/17 16:54 Dose: Not Given - Labs Labs: 09/08/17 06:30 09/08/17 06:30
[2017-09-17] MEDS: Albuterol 0.042% Inhal Sol (1.25 mg/3 mL) UD INH PRN (03:13)
[2017-09-17] MEDS: guaiFENesin DM 100 mg-10 mg/5 ml UD PO PRN ×3 (03:39→23:26)
[2017-09-17] MEDS: CORTISPORIN OU SCH (08:57)
[2017-09-17] MEDS: Pantoprazole 40 mg EC Tab PO SCH (08:58)
[2017-09-17] MEDS: Metoprolol Succinate 25 mg XL Tab PO SCH (08:59)
--- NOTE | 2017-09-17 09:03 | CP.PCM.PN ---
Subjective - Date & Time of Evaluation Date of Evaluation: 09/17/17 Time of Evaluation: 09:03 - Subjective Subjective: Podiatry Progress Note - Dr. Garcia 82M seen and examined in TCU concerning left medial ankle ulceration. Patient OOB in wheelchair, hemodynamically stable and NAD. No acute events overnight. Patient denies any pain in his left ankle wound. Endorses increased swelling in his LLE. Offers no other pedal complaints today. Denies N/V/F/D/C/SOB. Objective - Vital Signs/Intake and Output Vital Signs (last 24 hours): Temp Pulse Resp BP Pulse Ox 97.0 F L 96 H 20 128/77 98 09/17/17 08:19 09/17/17 08:59 09/17/17 08:19 09/17/17 08:59 09/17/17 08:19 - Medications Medications: Current Medications Acetaminophen (Tylenol 325mg Tab) 650 mg PO Q4 PRN PRN Reason: Pain, Mild (1-3) Last Admin: 09/16/17 23:31 Dose: 650 mg Albuterol Sulfate (Albuterol 0.042% Inhal Jud (1.25mg/3ml) Ud) 1.25 mg INH RQ4 PRN PRN Reason: Shortness of Breath Last Admin: 09/17/17 03:13 Dose: 1.25 mg Atorvastatin Calcium (Lipitor) 10 mg PO DAILY@2100 [facility] Last Admin: 09/16/17 20:27 Dose: 10 mg Clopidogrel Bisulfate (Plavix) 75 mg PO DAILY [facility] Last Admin: 09/17/17 08:57 Dose: 75 mg Fluoxetine HCl (Prozac) 20 mg PO DAILY [facility] Last Admin: 09/17/17 08:58 Dose: 20 mg Furosemide (Lasix) 40 mg PO DAILY [facility] Last Admin: 09/17/17 08:57 Dose: 40 mg Guaifenesin/Dextromethorphan (Robitussin Dm) 5 ml PO Q4 PRN PRN Reason: Cough Last Admin: 09/17/17 09:01 Dose: 5 ml Losartan Potassium (Cozaar) 25 mg PO DAILY [facility] Last Admin: 09/17/17 08:58 Dose: 25 mg Metoprolol Succinate (Toprol Xl) 75 mg PO DAILYWM [facility] Last Admin: 09/17/17 08:59 Dose: 75 mg Neomycin/Polymyxin/Hydrocortisone (Cortisporin Opht Susp) 2 drop OU TID [facility] Last Admin: 09/17/17 08:57 Dose: 2 drop Pantoprazole Sodium (Protonix Ec Tab) 40 mg PO DAILY [facility] Last Admin: 09/17/17 08:58 Dose: 40 mg Rivaroxaban (Xarelto) 10 mg PO QD5 [facility] PRN Reason: Protocol Last Admin: 09/16/17 17:18 Dose: 10 mg - Labs Labs: 09/08/17 06:30 09/08/17 06:30 - Constitutional Appears: Well, Non-toxic, No Acute Distress - Extremities Exam Additional comments: Left lower extremity focused exam: Vasc: DP/PT 2/4. Cap refill delayed 5 sec in all digits. Temp gradient warm to cool from proximal to distal. +2 pitting edema extending from the midcalf distally. Neuro: Gross sensation intact, protective sensation diminished. Derm: Open ulcer at the left medial malleolous. linear in shape measured 9cm X 3.5 cm X 0.3. Base is granular and covered by thin yellow film. No malodor, no drainage. No tracking, no probing to bone and no undermining. MSK: Muscle power intact 5/5 in all muscle groups. Artheritic restricted ROM of all the major joints of foot and ankle. - Neurological Exam Neurological Exam: Alert, Awake, Oriented x3 - Psychiatric Exam Psychiatric exam: Normal Affect, Normal Mood Assessment and Plan - Assessment and Plan (Free Text) Assessment: 82M with left ankle venous stasis ulceration Plan: Patient seen and examined Discussed with attending, Dr. Garcia Continue local wound care - DSD Wound care nurse note appreciated Encourage OOB to ambulate Continue PT/OT Podiatry will continue to follow
[2017-09-17 20:06] VITALS: RESP 20
[2017-09-18] MEDS: Albuterol 0.042% Inhal Sol (1.25 mg/3 mL) UD INH PRN ×2 (02:53→18:47)
--- NOTE | 2017-09-18 07:38 | CP.PCM.PN ---
Subjective - Date & Time of Evaluation Date of Evaluation: 09/18/17 Time of Evaluation: 07:38 - Subjective Subjective: Podiatry Progress Note - Dr. Garcia 82M seen and evaluated in TCU for left medial ankle ulceration. Patient OOB in wheelchair at time of visit, hemodynamically stable and NAD. No acute events overnight. Reports swelling in LLE has improved today; denies any pain to left ankle. No new pedal complaints. Dressing to LLE remains clean/dry/intact. Denies N/V/F/D/C/SOB. Objective - Vital Signs/Intake and Output Vital Signs (last 24 hours): Temp Pulse Resp BP Pulse Ox 97.5 F L 85 20 132/72 99 09/17/17 20:05 09/17/17 20:05 09/17/17 20:05 09/17/17 20:05 09/17/17 20:05 - Medications Medications: Current Medications Acetaminophen (Tylenol 325mg Tab) 650 mg PO Q4 PRN PRN Reason: Pain, Mild (1-3) Last Admin: 09/17/17 21:55 Dose: 650 mg Albuterol Sulfate (Albuterol 0.042% Inhal Jud (1.25mg/3ml) Ud) 1.25 mg INH RQ4 PRN PRN Reason: Shortness of Breath Last Admin: 09/18/17 02:53 Dose: 1.25 mg Atorvastatin Calcium (Lipitor) 10 mg PO DAILY@2100 [facility] Last Admin: 09/17/17 21:55 Dose: 10 mg Clopidogrel Bisulfate (Plavix) 75 mg PO DAILY [facility] Last Admin: 09/17/17 08:57 Dose: 75 mg Fluoxetine HCl (Prozac) 20 mg PO DAILY [facility] Last Admin: 09/17/17 08:58 Dose: 20 mg Furosemide (Lasix) 40 mg PO DAILY [facility] Last Admin: 09/17/17 08:57 Dose: 40 mg Guaifenesin/Dextromethorphan (Robitussin Dm) 5 ml PO Q4 PRN PRN Reason: Cough Last Admin: 09/17/17 23:26 Dose: 5 ml Losartan Potassium (Cozaar) 25 mg PO DAILY [facility] Last Admin: 09/17/17 08:58 Dose: 25 mg Metoprolol Succinate (Toprol Xl) 75 mg PO DAILYWM [facility] Last Admin: 09/17/17 08:59 Dose: 75 mg Pantoprazole Sodium (Protonix Ec Tab) 40 mg PO DAILY [facility] Last Admin: 09/17/17 08:58 Dose: 40 mg Rivaroxaban (Xarelto) 10 mg PO QD5 [facility] PRN Reason: Protocol Last Admin: 09/17/17 16:34 Dose: 10 mg - Labs Labs: 09/08/17 06:30 09/08/17 06:30 - Constitutional Appears: Well, Non-toxic, No Acute Distress - Extremities Exam Additional comments: LLE focused physical exam: Vasc: DP and PT pulses palpable 2/4. CFT delayed >3 seconds to all digits. Temperature gradient cool to cool. +2 pitting edema extending from midcalf to digits. Neuro: Protective sensation diminished. Derm: Full thickness ulceration noted to medial ankle measuring approximately 9 x 3.5 x 0.5 cm - ulcer is noted to have a mixed fibrogranular base and rolled edges; periwound erythema present; no drainage; no purulence; no malodor; no undermining; no probe to bone. Ortho: No pain on palpation noted to wound. - Neurological Exam Neurological Exam: Alert, Awake, Oriented x3 - Psychiatric Exam Psychiatric exam: Normal Affect, Normal Mood Assessment and Plan - Assessment and Plan (Free Text) Assessment: 82M with left ankle venous stasis ulceration, stable Plan: Patient seen and examined Discussed with attending, Dr. Garcia Continue local wound care - DSD, MICHEL Wound care nurse note appreciated Encourage OOB to ambulate Continue PT/OT Podiatry will continue to follow
[2017-09-18] MEDS: Metoprolol Succinate 25 mg XL Tab PO SCH (08:18)
[2017-09-18] MEDS: Pantoprazole 40 mg EC Tab PO SCH (08:18)
[2017-09-18] MEDS: guaiFENesin DM 100 mg-10 mg/5 ml UD PO PRN (21:26)
[2017-09-19] MEDS: Albuterol 0.042% Inhal Sol (1.25 mg/3 mL) UD INH PRN (00:51)
--- NOTE | 2017-09-19 06:03 | CP.PCM.PN ---
Subjective - Date & Time of Evaluation Date of Evaluation: 09/19/17 Time of Evaluation: 06:00 - Subjective Subjective: Podiatry Progress Note for Dr. Garcia 82 y/o male seen and evaluated in TCU for left medial ankle ulceration. Patient resting comfortably in bed and in NAD. No acute events overnight. Reports swelling in Left LE whicn has has improved since his admission; denies any pain to left ankle. No new pedal complaints. Dressing to Left LE remains clean/dry/ intact. Denies N/V/F/D/C/SOB. Patient denies any overnight acute events. Objective - Vital Signs/Intake and Output Vital Signs (last 24 hours): Temp Pulse Resp BP Pulse Ox 97.7 F 67 20 105/55 L 98 09/18/17 20:01 09/18/17 20:01 09/18/17 20:01 09/18/17 20:01 09/18/17 20:01 - Medications Medications: Current Medications Acetaminophen (Tylenol 325mg Tab) 650 mg PO Q4 PRN PRN Reason: Pain, Mild (1-3) Last Admin: 09/18/17 23:38 Dose: 650 mg Albuterol Sulfate (Albuterol 0.042% Inhal Jud (1.25mg/3ml) Ud) 1.25 mg INH RQ4 PRN PRN Reason: Shortness of Breath Last Admin: 09/19/17 00:51 Dose: 1.25 mg Atorvastatin Calcium (Lipitor) 10 mg PO DAILY@2100 [facility] Last Admin: 09/18/17 21:26 Dose: 10 mg Clopidogrel Bisulfate (Plavix) 75 mg PO DAILY [facility] Last Admin: 09/18/17 08:17 Dose: 75 mg Fluoxetine HCl (Prozac) 20 mg PO DAILY [facility] Last Admin: 09/18/17 08:17 Dose: 20 mg Furosemide (Lasix) 40 mg PO DAILY [facility] Last Admin: 09/18/17 08:17 Dose: 40 mg Guaifenesin/Dextromethorphan (Robitussin Dm) 5 ml PO Q4 PRN PRN Reason: Cough Last Admin: 09/18/17 21:26 Dose: 5 ml Losartan Potassium (Cozaar) 25 mg PO DAILY [facility] Last Admin: 09/18/17 08:19 Dose: 25 mg [facility]oprolol [facility] ([facility]l) [facility] [place] Admin: 09/18/17 08:18 Dose: 75 mg Pantoprazole Sodium (Protonix Ec Tab) 40 mg PO DAILY [facility] Last Admin: 09/18/17 08:18 Dose: 40 mg Rivaroxaban (Xarelto) 10 mg PO QD5 [facility] PRN Reason: Protocol Last Admin: 09/18/17 17:07 Dose: 10 mg - Labs Labs: 09/08/17 06:30 09/08/17 06:30 - Constitutional Appears: Well, Non-toxic, No Acute Distress - Head Exam Head Exam: ATRAUMATIC, NORMOCEPHALIC - Extremities Exam Additional comments: LLE focused physical exam: Vasc: DP and PT pulses palpable 2/4. CFT delayed >3 seconds to all digits. Temperature gradient cool to cool. +2 pitting edema extending from midcalf to digits. Neuro: Protective sensation diminished. Derm: Full thickness ulceration noted to medial ankle measuring approximately 9 x 3.5 x 0.5 cm - ulcer is noted to have a mixed fibro-granular 30:70 base and rolled edges; periwound erythema present; no drainage; no purulence; no malodor ; no undermining; no probe to bone. Ortho: No pain on palpation noted to wound. - Neurological Exam Neurological Exam: Alert, Awake, Oriented x3 - Psychiatric Exam Psychiatric exam: Normal Affect, Normal Mood Assessment and Plan - Assessment and Plan (Free Text) Assessment: 82 y/o male with left ankle venous stasis ulceration, stable Plan: Patient seen and examined Plan discussed with attending, Dr. Garcia Continue local wound care - DSD. Wound care nurse note appreciated Encourage OOB to ambulate Continue PT/OT Podiatry will continue to follow the patient in house.
[2017-09-19] MEDS: Metoprolol Succinate 25 mg XL Tab PO SCH (08:30)
[2017-09-19] MEDS: Pantoprazole 40 mg EC Tab PO SCH (08:35)
[2017-09-19] MEDS: guaiFENesin DM 100 mg-10 mg/5 ml UD PO PRN (16:57)
--- NOTE | 2017-09-19 18:54 | PCM.PROC ---
Procedures Attestation:: I certify that I have explained the specified Operation(s) or Procedure(s), risks, benefits and reasonable alternatives to the Patient and/or other person responsible. The opportunity was given to ask questions and all questions answered - Joint Aspiration/Injection Joint #1 Consent Obtained: Verbal Consent Time Out Performed: Yes Side of Body: Right Joint Aspirated: Knee Ultrasound Guidance Used: No Skin Prep: Povidone-Iodine Needle Size Used: 22 G Total Fluid Removed (mls): 0 Medication Injected: Triamcinolone Acetate, Methylprednisolone, Lidocaine Patient Tolorated Procedure: Well Complications: None
--- NOTE | 2017-09-20 07:31 | CP.PCM.PN ---
Subjective - Date & Time of Evaluation Date of Evaluation: 09/20/17 Time of Evaluation: 07:29 - Subjective Subjective: Podiatry Progress Note for Dr. Garcia 82 y/o male seen and evaluated at the bedside in TCU for left medial ankle ulceration. Patient is resting comfortably in bed and in no acute distress. Patient is AAO X 3. Patient states that his swelling in Left LE has been improved since his admission; Patient denies any pain to left ankle. Patient denies any other pedal complaints. Dressing to Left LE remains clean/dry/ intact. Patient denies N/V/F/D/C/SOB. Patient denies any overnight acute events. Objective - Vital Signs/Intake and Output Vital Signs (last 24 hours): Temp Pulse Resp BP Pulse Ox 97.0 F L 77 20 107/50 L 98 09/19/17 20:53 09/19/17 20:53 09/19/17 20:53 09/19/17 20:53 09/19/17 20:53 - Medications Medications: Current Medications Acetaminophen (Tylenol 325mg Tab) 650 mg PO Q4 PRN PRN Reason: Pain, Mild (1-3) Last Admin: 09/19/17 08:39 Dose: 650 mg Albuterol Sulfate (Albuterol 0.042% Inhal Jud (1.25mg/3ml) Ud) 1.25 mg INH RQ4 PRN PRN Reason: Shortness of Breath Last Admin: 09/19/17 00:51 Dose: 1.25 mg Atorvastatin Calcium (Lipitor) 10 mg PO DAILY@2100 [facility] Last Admin: 09/19/17 20:29 Dose: 10 mg Clopidogrel Bisulfate (Plavix) 75 mg PO DAILY [facility] Last Admin: 09/19/17 08:32 Dose: 75 mg Collagenase (Santyl) 1 applic TOP DAILY [facility] Fluoxetine HCl (Prozac) 20 mg PO DAILY [facility] Last Admin: 09/19/17 08:33 Dose: 20 mg Furosemide (Lasix) 40 mg PO DAILY [facility] Last Admin: 09/19/17 08:32 Dose: 40 mg Guaifenesin/Dextromethorphan (Robitussin Dm) 5 ml PO Q4 PRN PRN Reason: Cough Last Admin: 09/19/17 16:57 Dose: 5 ml Losartan Potassium (Cozaar) 25 mg PO DAILY [facility] Last Admin: 09/19/17 08:32 Dose: 25 mg Metoprolol Succinate (Toprol Xl) 75 mg PO DAILYWM [facility] Last Admin: 09/19/17 08:30 Dose: 75 mg Pantoprazole Sodium (Protonix Ec Tab) 40 mg PO DAILY [facility] Last Admin: 09/19/17 08:35 Dose: 40 mg Rivaroxaban (Xarelto) 10 mg PO QD5 [facility] PRN Reason: Protocol Last Admin: 09/19/17 16:58 Dose: 10 mg - Labs Labs: 09/08/17 06:30 09/08/17 06:30 - Constitutional Appears: Well, Non-toxic, No Acute Distress - Head Exam Head Exam: ATRAUMATIC, NORMOCEPHALIC - Extremities Exam Additional comments: LLE focused exam: Vasc: DP/PT pulses palpable 2/4. CFT delayed >3 seconds to all digits. Temperature gradient warm to cool. +2 pitting edema extending up to the midcalf. Neuro: Protective sensation diminished, Gross sensation intact. Derm: Full thickness ulceration noted to medial ankle measuring approximately 8.5 x 3.5 x 0.5 cm - ulcer is noted to have a mixed fibro-granular base 30:70 and rolled edges; kim-wound mild erythema present; no drainage; no purulence; no malodor; no undermining; no probe to bone and no tracking. Ortho: No pain on palpation noted to wound. - Neurological Exam Neurological Exam: Alert, Awake, Oriented x3 - Psychiatric Exam Psychiatric exam: Normal Affect, Normal Mood Assessment and Plan - Assessment and Plan (Free Text) Assessment: 82 y/o male with left ankle venous stasis ulceration, stable Plan: Patient seen and evaluated at the bedside Plan discussed with attending, Dr. Garcia Continue local wound care - DSD and santyl. Wound care nurse note appreciated Encourage OOB to ambulate Continue PT/OT Podiatry will continue to follow the patient in house.
[2017-09-20] MEDS: Pantoprazole 40 mg EC Tab PO SCH (08:21)
[2017-09-20] MEDS: Metoprolol Succinate 25 mg XL Tab PO SCH (08:22)
[2017-09-20] MEDS: Santyl Collagenase OINTMENT TOP SCH (09:00)
--- NOTE | 2017-09-20 16:53 | CP.PCM.PN ---
Subjective - Date & Time of Evaluation Date of Evaluation: 09/20/17 Time of Evaluation: 16:52 - Subjective Subjective: Marked early improvement in left knee pain following our injection last night significant increase in functional gains as well Objective - Vital Signs/Intake and Output Vital Signs (last 24 hours): Temp Pulse Resp BP Pulse Ox 97.7 F 78 20 113/58 L 97 09/20/17 15:37 09/20/17 15:37 09/20/17 15:37 09/20/17 15:37 09/20/17 15:37 - Medications Medications: Current Medications Acetaminophen (Tylenol 325mg Tab) 650 mg PO Q4 PRN PRN Reason: Pain, Mild (1-3) Last Admin: 09/19/17 08:39 Dose: 650 mg Albuterol Sulfate (Albuterol 0.042% Inhal Jud (1.25mg/3ml) Ud) 1.25 mg INH RQ4 PRN PRN Reason: Shortness of Breath Last Admin: 09/19/17 00:51 Dose: 1.25 mg Atorvastatin Calcium (Lipitor) 10 mg PO DAILY@2100 [facility] Last Admin: 09/19/17 20:29 Dose: 10 mg Clopidogrel Bisulfate (Plavix) 75 mg PO DAILY [facility] Last Admin: 09/20/17 08:20 Dose: 75 mg Collagenase (Santyl) 1 applic TOP DAILY [facility] Last Admin: 09/20/17 09:00 Dose: 1 appl Fluoxetine HCl (Prozac) 20 mg PO DAILY [facility] Last Admin: 09/20/17 08:20 Dose: 20 mg Furosemide (Lasix) 40 mg PO DAILY [facility] Last Admin: 09/20/17 08:20 Dose: 40 mg Guaifenesin/Dextromethorphan (Robitussin Dm) 5 ml PO Q4 PRN PRN Reason: Cough Last Admin: 09/19/17 16:57 Dose: 5 ml Losartan Potassium (Cozaar) 25 mg PO DAILY [facility] Last Admin: 09/20/17 08:21 Dose: 25 mg Metoprolol Succinate (Toprol Xl) 75 mg PO DAILYWM [facility] Last Admin: 09/20/17 08:22 Dose: 75 mg Pantoprazole Sodium (Protonix Ec Tab) 40 mg PO DAILY [facility] Last Admin: 09/20/17 08:21 Dose: 40 mg Rivaroxaban (Xarelto) 10 mg PO QD5 [facility] PRN Reason: Protocol Last Admin: 09/20/17 16:42 Dose: 10 mg - Labs Labs: 09/08/17 06:30 09/08/17 06:30
--- NOTE | 2017-09-20 18:18 | CP.PCM.PN ---
Subjective - Date & Time of Evaluation Date of Evaluation: 09/20/17 Time of Evaluation: 17:00 - Subjective Subjective: Patient seen and examined while having physical therapy. The patient states that he feels better and is able to tolerate the therapy well. He states that he feels improved since first coming to TCU. No new complaints. Objective - Vital Signs/Intake and Output Vital Signs (last 24 hours): Temp Pulse Resp BP Pulse Ox 97.7 F 78 20 113/58 L 97 09/20/17 15:37 09/20/17 15:37 09/20/17 15:37 09/20/17 15:37 09/20/17 15:37 - Medications Medications: Current Medications Acetaminophen (Tylenol 325mg Tab) 650 mg PO Q4 PRN PRN Reason: Pain, Mild (1-3) Last Admin: 09/19/17 08:39 Dose: 650 mg Albuterol Sulfate (Albuterol 0.042% Inhal Jud (1.25mg/3ml) Ud) 1.25 mg INH RQ4 PRN PRN Reason: Shortness of Breath Last Admin: 09/19/17 00:51 Dose: 1.25 mg Atorvastatin Calcium (Lipitor) 10 mg PO DAILY@2100 [facility] Last Admin: 09/19/17 20:29 Dose: 10 mg Clopidogrel Bisulfate (Plavix) 75 mg PO DAILY [facility] Last Admin: 09/20/17 08:20 Dose: 75 mg Collagenase (Santyl) 1 applic TOP DAILY [facility] Last Admin: 09/20/17 09:00 Dose: 1 appl Fluoxetine HCl (Prozac) 20 mg PO DAILY [facility] Last Admin: 09/20/17 08:20 Dose: 20 mg Furosemide (Lasix) 40 mg PO DAILY [facility] Last Admin: 09/20/17 08:20 Dose: 40 mg Guaifenesin/Dextromethorphan (Robitussin Dm) 5 ml PO Q4 PRN PRN Reason: Cough Last Admin: 09/19/17 16:57 Dose: 5 ml Losartan Potassium (Cozaar) 25 mg PO DAILY [facility] Last Admin: 09/20/17 08:21 Dose: 25 mg [facility] Admin: 09/20/17 08:22 Dose: 75 mg Pantoprazole Sodium (Protonix Ec Tab) 40 mg PO DAILY [facility] Last Admin: 09/20/17 08:21 Dose: 40 mg Rivaroxaban (Xarelto) 10 mg PO QD5 [facility] PRN Reason: Protocol Last Admin: 09/20/17 16:42 Dose: 10 mg - Labs Labs: 09/08/17 06:30 09/08/17 06:30 - Additional Findings Additional findings: Physical exam: Constitutional- cooperative, awake, alert Head- NCAT, PERRL, left submandibular angle lipoma Eye- PERRL, EOMI ENT- normal exam, MMM. Neck- normal inspection, supple, no JVD Respiratory- CTAB, no wheezes rales rhonchi Cardiovascular- irregular rate and rhythm, +S1, +S2 no MRG GI/Abdominal- normal bowel sounds, soft, no mass, no hsm Skin- warm, dry Extremities Exam- Bilateral lower extremity chronic venous insufficiency. + Left heel ulcer, chronic Neurological Exam- alert, awake, oriented Psych- normal mood, normal affect Assessment and Plan - Assessment and Plan (Free Text) Plan: 82 yo male with history of Chronic AFib, Aortic Stenosis s/p TAVR, CAD, HTN, PVD , Chronic Ulcer of the Left Foot and Dilated Cardiomyopathy admitted initially at [facility] on 08/22/17 because of SOB probably secondary to faulty pacemaker. He was sent to [facility] to replace pacemaker with AICD on and was sent back to [facility]. His condition improved and on he was transferred to [facility] and admitted in TCU for continuation of management and physical therapy for deconditioning. 1. Deconditioning in the setting of Dilated Cardiomyopathy continue PT/OT 2. Chronic AFib rate controlled continue Xarelto and Metoprolol 3. Aortic Stenosis S/P TAVR AICD in placed 4. HTN BP stable on Losartan and Metoprolol 5. Chronic Foot Ulcer podiatry on board wound care Santyl and DSD. 6. PVD on Crestor and Plavix 7. DVT prophylaxis - Xarelto
[2017-09-20] MEDS: guaiFENesin DM 100 mg-10 mg/5 ml UD PO PRN (21:43)
[2017-09-21] MEDS: Metoprolol Succinate 25 mg XL Tab PO SCH (08:10)
[2017-09-21] MEDS: Santyl Collagenase OINTMENT TOP SCH (08:11)
[2017-09-21] MEDS: Pantoprazole 40 mg EC Tab PO SCH (08:11)
--- NOTE | 2017-09-21 08:31 | CP.PCM.PN ---
Subjective - Date & Time of Evaluation Date of Evaluation: 09/21/17 Time of Evaluation: 08:26 - Subjective Subjective: Podiatry Progress Note for Dr. Garcia 82 y/o male seen and evaluated at the bedside in TCU for left medial ankle ulceration. Patient is resting comfortably in bed and in NAD. Patient is AAO X 3. Patient states that his swelling in Left LE is still improving since his admission; Patient denies any pain to left ankle. Patient denies any other pedal complaints. Dressing to Left LE remains clean/dry/intact. Patient states that he is using the left surgical shoe when he is ambulating from bed. Patient and his nurse states that he will be discharged from the hospital this Tuesday. Patient denies N/V/F/D/C/SOB. Patient denies any overnight acute events. Objective - Vital Signs/Intake and Output Vital Signs (last 24 hours): Temp Pulse Resp BP Pulse Ox 97.9 F 72 20 136/80 96 09/21/17 08:17 09/21/17 08:17 09/21/17 08:17 09/21/17 08:17 09/21/17 08:17 - Medications Medications: Current Medications Acetaminophen (Tylenol 325mg Tab) 650 mg PO Q4 PRN PRN Reason: Pain, Mild (1-3) Last Admin: 09/20/17 21:37 Dose: 650 mg Albuterol Sulfate (Albuterol 0.042% Inhal Jud (1.25mg/3ml) Ud) 1.25 mg INH RQ4 PRN PRN Reason: Shortness of Breath Last Admin: 09/19/17 00:51 Dose: 1.25 mg Atorvastatin Calcium (Lipitor) 10 mg PO DAILY@2100 [facility] Last Admin: 09/20/17 21:36 Dose: 10 mg Clopidogrel Bisulfate (Plavix) 75 mg PO DAILY [facility] Last Admin: 09/21/17 08:11 Dose: 75 mg Collagenase (Santyl) 1 applic TOP DAILY [facility] Last Admin: 09/21/17 08:11 Dose: 1 appl Fluoxetine HCl (Prozac) 20 mg PO DAILY [facility] Last Admin: 09/21/17 08:09 Dose: 20 mg Furosemide (Lasix) 40 mg PO DAILY [facility] Last Admin: 09/21/17 08:10 Dose: 40 mg Guaifenesin/Dextromethorphan (Robitussin Dm) 5 ml PO Q4 PRN PRN Reason: Cough Last Admin: 09/20/17 21:43 Dose: 5 ml Losartan Potassium (Cozaar) 25 mg PO DAILY [facility] Last Admin: 09/21/17 08:10 Dose: 25 mg Metoprolol Succinate (Toprol Xl) 75 mg PO DAILYWM [facility] Last Admin: 09/21/17 08:10 Dose: 75 mg Pantoprazole Sodium (Protonix Ec Tab) 40 mg PO DAILY [facility] Last Admin: 09/21/17 08:11 Dose: 40 mg Rivaroxaban (Xarelto) 10 mg PO QD5 [facility] PRN Reason: Protocol Last Admin: 09/20/17 16:42 Dose: 10 mg - Labs Labs: 09/08/17 06:30 09/08/17 06:30 - Constitutional Appears: Well, Non-toxic, No Acute Distress - Head Exam Head Exam: ATRAUMATIC, NORMOCEPHALIC - Extremities Exam Additional comments: Left LE focused exam: Vasc: DP/PT pulses palpable 2/4. CFT delayed >3 seconds to all digits. Temperature gradient warm to cool. +2 pitting edema extending below the calf and above the ankle. Neuro: Protective sensation diminished, Gross sensation intact. Derm: Full thickness ulceration noted to medial ankle measuring approximately 8.5 x 3.5 x 0.5 cm - ulcer is noted to have a mixed fibro-granular base 25:75 and rolled edges; kim-wound mild erythema present; no drainage; no purulence; no malodor; no undermining; no probe to bone and no tracking. Ortho: No pain on palpation noted to wound. - Neurological Exam Neurological Exam: Alert, Awake, Oriented x3 - Psychiatric Exam Psychiatric exam: Normal Affect, Normal Mood Assessment and Plan - Assessment and Plan (Free Text) Assessment: 82 y/o male with left ankle venous stasis ulceration, stable Plan: Patient seen and evaluated at the bedside Plan discussed with attending, Dr. Lazo Continue local wound care - DSOlive and jax. Wound care nurse note appreciated Encourage OOB to ambulate Continue PT/OT Patient is stable from the podiatry stand point. Patient to be discharged from the hospital this Tuesday by his primary team according to the patient and his nurse. Podiatry will continue to follow the patient in house.
--- NOTE | 2017-09-22 07:35 | CP.PCM.PN ---
Subjective - Date & Time of Evaluation Date of Evaluation: 09/22/17 Time of Evaluation: 07:32 - Subjective Subjective: Podiatry Progress Note for Dr. Garcia 82 y/o male seen and evaluated at the bedside in TCU for left medial ankle ulceration. Patient is seen resting comfortably in bed and in NAD. Patient is AAO X 3. Patient denies any lower extremity pain. Patient denies any other pedal complaints. Dressing to Left LE remains clean/dry/intact. Patient admits to using the surgical shoe at all times. Patient states he was told he might get d/c on Tuesday. Patient denies N/V/F/D/C/SOB. Patient denies any overnight acute events. Objective - Vital Signs/Intake and Output Vital Signs (last 24 hours): Temp Pulse Resp BP Pulse Ox 97.9 F 66 20 103/61 96 09/21/17 19:35 09/21/17 19:35 09/21/17 19:35 09/21/17 19:35 09/21/17 19:35 - Medications Medications: Current Medications Acetaminophen (Tylenol 325mg Tab) 650 mg PO Q4 PRN PRN Reason: Pain, Mild (1-3) Last Admin: 09/21/17 21:22 Dose: 650 mg Albuterol Sulfate (Albuterol 0.042% Inhal Jud (1.25mg/3ml) Ud) 1.25 mg INH RQ4 PRN PRN Reason: Shortness of Breath Last Admin: 09/19/17 00:51 Dose: 1.25 mg Atorvastatin Calcium (Lipitor) 10 mg PO DAILY@2100 [facility] Last Admin: 09/21/17 21:22 Dose: 10 mg Clopidogrel Bisulfate (Plavix) 75 mg PO DAILY [facility] Last Admin: 09/21/17 08:11 Dose: 75 mg Collagenase (Santyl) 1 applic TOP DAILY [facility] Last Admin: 09/21/17 08:11 Dose: 1 appl Fluoxetine HCl (Prozac) 20 mg PO DAILY [facility] Last Admin: 09/21/17 08:09 Dose: 20 mg Furosemide (Lasix) 40 mg PO DAILY [facility] Last Admin: 09/21/17 08:10 Dose: 40 mg Guaifenesin/Dextromethorphan (Robitussin Dm) 5 ml PO Q4 PRN PRN Reason: Cough Last Admin: 09/20/17 21:43 Dose: 5 ml Losartan Potassium (Cozaar) 25 mg PO DAILY [facility] Last Admin: 09/21/17 08:10 Dose: 25 mg Metoprolol Succinate (Toprol Xl) 75 mg PO DAILYWM [facility] Last Admin: 09/21/17 08:10 Dose: 75 mg Pantoprazole Sodium (Protonix Ec Tab) 40 mg PO DAILY [facility] Last Admin: 09/21/17 08:11 Dose: 40 mg Rivaroxaban (Xarelto) 10 mg PO QD5 [facility] PRN Reason: Protocol Last Admin: 09/21/17 17:35 Dose: 10 mg - Labs Labs: 09/08/17 06:30 09/08/17 06:30 - Constitutional Appears: Well, Non-toxic, No Acute Distress - Head Exam Head Exam: ATRAUMATIC, NORMOCEPHALIC - Extremities Exam Additional comments: Left LE focused exam: Vasc: DP/PT pulses palpable 2/4. CFT delayed >3 seconds to all digits. Temperature gradient warm to cool. +2 pitting edema extending below the calf and above the ankle. Neuro: Protective sensation diminished, Gross sensation intact. Derm: Full thickness ulceration noted to medial ankle measuring approximately 8.5 x 3.5 x 0.5 cm - ulcer is noted to have a mixed 25% fibrotic and 75% granular and rolled edges; kim-wound mild erythema present; no drainage; no purulence; no malodor; no undermining; no probe to bone and no tracking. Ortho: No pain on palpation noted to wound. - Neurological Exam Neurological Exam: Alert, Awake, Oriented x3 Assessment and Plan - Assessment and Plan (Free Text) Assessment: 82 y/o male with stable, non-infected left ankle venous stasis ulceration Plan: Patient seen and evaluated at the bedside Plan discussed with attending, Dr. Lazo Continue local wound care - DSD and jax. Wound care nurse note appreciated Encourage patient to ambulate in surgical shoe Continue PT/OT Podiatry plan: patient stable from podiatry point of view Patient to be discharged from the hospital this Tuesday by his primary team according to the patient and his nurse. Podiatry will continue to follow the patient in house.
[2017-09-22] MEDS: Metoprolol Succinate 25 mg XL Tab PO SCH (08:25)
[2017-09-22] MEDS: Pantoprazole 40 mg EC Tab PO SCH (08:26)
[2017-09-22] MEDS: Santyl Collagenase OINTMENT TOP SCH (08:28)
--- NOTE | 2017-09-22 18:12 | CP.PCM.PN ---
Subjective - Date & Time of Evaluation Date of Evaluation: 09/22/17 Time of Evaluation: 18:12 - Subjective Subjective: Patient seen in the room no knee pain at night sleeps through the night able to do stairs and did an obstacle course in therapy too denies sob/cp happy with the left knee injection set for d/c home tomorrow Objective - Vital Signs/Intake and Output Vital Signs (last 24 hours): Temp Pulse Resp BP Pulse Ox 97.0 F L 74 20 126/69 98 09/22/17 16:47 09/22/17 16:47 09/22/17 16:47 09/22/17 16:47 09/22/17 16:47 - Medications Medications: Current Medications Acetaminophen (Tylenol 325mg Tab) 650 mg PO Q4 PRN PRN Reason: Pain, Mild (1-3) Last Admin: 09/21/17 21:22 Dose: 650 mg Albuterol Sulfate (Albuterol 0.042% Inhal Jud (1.25mg/3ml) Ud) 1.25 mg INH RQ4 PRN PRN Reason: Shortness of Breath Last Admin: 09/19/17 00:51 Dose: 1.25 mg Atorvastatin Calcium (Lipitor) 10 mg PO DAILY@2100 [facility] Last Admin: 09/21/17 21:22 Dose: 10 mg Clopidogrel Bisulfate (Plavix) 75 mg PO DAILY [facility] Last Admin: 09/22/17 08:26 Dose: 75 mg Collagenase (Santyl) 1 applic TOP DAILY [facility] Last Admin: 09/22/17 08:28 Dose: 1 appl Fluoxetine HCl (Prozac) 20 mg PO DAILY [facility] Last Admin: 09/22/17 08:26 Dose: 20 mg Furosemide (Lasix) 40 mg PO DAILY [facility] Last Admin: 09/22/17 08:26 Dose: 40 mg Guaifenesin/Dextromethorphan (Robitussin Dm) 5 ml PO Q4 PRN PRN Reason: Cough Last Admin: 09/20/17 21:43 Dose: 5 ml Losartan Potassium (Cozaar) 25 mg PO DAILY [facility] Last Admin: 09/22/17 08:26 Dose: 25 mg Metoprolol Succinate (Toprol Xl) 75 mg PO DAILYWM [facility] Last Admin: 09/22/17 08:25 Dose: 75 mg Pantoprazole Sodium (Protonix Ec Tab) 40 mg PO DAILY [facility] Last Admin: 09/22/17 08:26 Dose: 40 mg Rivaroxaban (Xarelto) 10 mg PO QD5 [facility] PRN Reason: Protocol Last Admin: 09/22/17 17:28 Dose: 10 mg - Labs Labs: 09/08/17 06:30 09/08/17 06:30
[2017-09-23 07:47] VITALS: TEMP 97.2; O2SAT 99
[2017-09-23] MEDS: Pantoprazole 40 mg EC Tab PO SCH (08:25)
[2017-09-23] MEDS: Metoprolol Succinate 25 mg XL Tab PO SCH (08:25)
[2017-09-23 08:30] VITALS: BP 127/65; PULSE 92
--- NOTE | 2017-09-23 09:35 | CP.PCM.PN ---
Subjective - Date & Time of Evaluation Date of Evaluation: 09/23/17 Time of Evaluation: 09:30 - Subjective Subjective: Podiatry Progress Note for Dr. Garcia 82 y/o male seen and evaluated at the bedside in TCU for left medial ankle ulceration. Patient is seen resting comfortably in bed and in NAD. Patient is AAO X 3. Patient denies any lower extremity pain. Patient states that yesterday his ulcer drained some fluid throught the dressing. Patient denies any other pedal complaints. Dressing to Left LE remains clean/dry/intact. Patient admits to using the surgical shoe at all times. Patient states he was told he might get d/c on Tuesday. Patient denies N/V/F/D/C/SOB. Patient denies any overnight acute events. Objective - Vital Signs/Intake and Output Vital Signs (last 24 hours): Temp Pulse Resp BP Pulse Ox 97.2 F L 92 H 20 127/65 99 09/23/17 07:46 09/23/17 08:25 09/23/17 07:46 09/23/17 08:25 09/23/17 07:46 - Medications Medications: Current Medications Acetaminophen (Tylenol 325mg Tab) 650 mg PO Q4 PRN PRN Reason: Pain, Mild (1-3) Last Admin: 09/21/17 21:22 Dose: 650 mg Albuterol Sulfate (Albuterol 0.042% Inhal Jud (1.25mg/3ml) Ud) 1.25 mg INH RQ4 PRN PRN Reason: Shortness of Breath Last Admin: 09/19/17 00:51 Dose: 1.25 mg Atorvastatin Calcium (Lipitor) 10 mg PO DAILY@2100 [facility] Last Admin: 09/22/17 21:27 Dose: 10 mg Clopidogrel Bisulfate (Plavix) 75 mg PO DAILY [facility] Last Admin: 09/23/17 08:24 Dose: 75 mg Collagenase (Santyl) 1 applic TOP DAILY [facility] Last Admin: 09/22/17 08:28 Dose: 1 appl Fluoxetine HCl (Prozac) 20 mg PO DAILY [facility] Last Admin: 09/23/17 08:24 Dose: 20 mg Furosemide (Lasix) 40 mg PO DAILY [facility] Last Admin: 09/23/17 08:25 Dose: 40 mg Guaifenesin/Dextromethorphan (Robitussin Dm) 5 ml PO Q4 PRN PRN Reason: Cough Last Admin: 09/20/17 21:43 Dose: 5 ml Losartan Potassium (Cozaar) 25 mg PO DAILY [facility] Last Admin: 09/23/17 08:23 Dose: 25 mg Metoprolol Succinate (Toprol Xl) 75 mg PO DAILYWM [facility] Last Admin: 09/23/17 08:25 Dose: 75 mg Pantoprazole Sodium (Protonix Ec Tab) 40 mg PO DAILY [facility] Last Admin: 09/23/17 08:25 Dose: 40 mg Rivaroxaban (Xarelto) 10 mg PO QD5 [facility] PRN Reason: Protocol Last Admin: 09/22/17 17:28 Dose: 10 mg - Labs Labs: 09/08/17 06:30 09/08/17 06:30 - Constitutional Appears: Well, Non-toxic, No Acute Distress - Head Exam Head Exam: ATRAUMATIC, NORMOCEPHALIC - Extremities Exam Additional comments: Left LE focused exam: Vasc: DP/PT pulses palpable 2/4. CFT delayed >3 seconds to all digits. Temperature gradient warm to cool. +2 pitting edema extending below the calf and above the ankle. Neuro: Protective sensation diminished, Gross sensation intact. Derm: Full thickness ulceration noted to medial ankle measuring approximately 8.5 x 3.5 x 0.5 cm - ulcer is noted to have a mixed 25% fibrotic and 75% granular and rolled edges; kim-wound mild erythema present; moderate amount of serous drainage drainage; no purulence; no malodor; no undermining; no probe to bone and no tracking. Ortho: No pain on palpation noted to wound. - Neurological Exam Neurological Exam: Alert, Awake, Oriented x3 - Psychiatric Exam Psychiatric exam: Normal Affect, Normal Mood Assessment and Plan - Assessment and Plan (Free Text) Assessment: 82 y/o male with stable, non-infected left ankle venous stasis ulceration Plan: Patient seen and evaluated at the bedside Plan discussed with attending, Dr. Lazo Continue local wound care - DSD and jax. Wound care nurse note appreciated Encourage patient to ambulate in surgical shoe Continue PT/OT Podiatry plan: patient stable from podiatry point of view Patient to be discharged from the hospital today by his primary team. Patient will follow up in the wound care center at [place] with [facility].
--- NOTE | 2017-09-23 10:36 | CP.PCM.DIS ---
Provider - Provider Date of Admission: 09/07/17 17:11 Attending physician: Tevin Reynolds MD Consults: Dr Ann Garcia Time Spent in preparation of Discharge (in minutes): 25 Diagnosis - Discharge Diagnosis (1) Physical deconditioning Status: Acute Comment: did well with PT/OT (2) Chronic a-fib Status: Chronic Comment: rate controlled. on Xarelto and Metoprolol (3) Aortic stenosis Status: Chronic Comment: post TAVR (4) Chronic foot ulcer Status: Chronic Comment: managed by podiatry and did well (5) HTN (hypertension) Status: Chronic Comment: BP stable. on Losartan and Metoprolol Hospital Course - Lab Results Lab Results: Most Recent Lab Values WBC 5.6 K/uL (4.8-10.8) 09/08/17 06:30 RBC 4.42 Mil/uL (4.40-5.90) 09/08/17 06:30 Hgb 14.8 g/dL (12.0-18.0) 09/08/17 06:30 Hct 43.2 % (35.0-51.0) 09/08/17 06:30 MCV 97.6 fl (80.0-94.0) H 09/08/17 06:30 MCH 33.5 pg (27.0-31.0) H 09/08/17 06:30 MCHC 34.3 g/dL (33.0-37.0) 09/08/17 06:30 RDW 14.9 % (11.5-14.5) H 09/08/17 06:30 Plt Count 221 K/uL (130-400) 09/08/17 06:30 Sodium 138 mmol/l (132-148) 09/08/17 06:30 Potassium 3.5 MMOL/L (3.6-5.0) L 09/08/17 06:30 Chloride 100 mmol/L (98-107) 09/08/17 06:30 Carbon Dioxide 30 mmol/L (22-30) 09/08/17 06:30 Anion Gap 12 (10-20) 09/08/17 06:30 BUN 12 mg/dl (9-20) 09/08/17 06:30 Creatinine 0.6 mg/dl (0.8-1.5) L 09/08/17 06:30 Est GFR ( Amer) > 60 09/08/17 06:30 Est GFR (Non-Af Amer) > 60 09/08/17 06:30 POC Glucose (mg/dL) 84 mg/dL (65-110) 09/09/17 11:57 Random Glucose 102 mg/dL (75-110) 09/08/17 06:30 Calcium 9.0 mg/dL (8.4-10.2) 09/08/17 06:30 - Hospital Course Hospital Course: 82 yo male with history of Chronic AFib, Aortic Stenosis s/p TAVR, CAD, HTN, PVD , Chronic Ulcer of the Left Foot and Dilated Cardiomyopathy admitted initially at [facility] on 08/22/17 because of SOB probably secondary to faulty pacemaker. He was sent to [facility] to replace pacemaker with AICD on and was sent back to [facility]. His condition improved and on he was transferred to [facility] and admitted in TCU for continuation of management and physical therapy for deconditioning. Patient did well and now is discharged in stable condition. Discharge Exam - Head Exam Head Exam: ATRAUMATIC, NORMOCEPHALIC - Eye Exam Eye Exam: absent: Scleral icterus - ENT Exam ENT Exam: Mucous Membranes Moist - Respiratory Exam Respiratory Exam: absent: Rales, Rhonchi, Wheezes, Respiratory Distress - Cardiovascular Exam Cardiovascular Exam: Irregular Rhythm - GI/Abdominal Exam GI & Abdominal Exam: Soft. absent: Tenderness - Rectal Exam Rectal Exam: Deferred - Extremities Exam Additional comments: left foot with intact, clean and dry dressing - Neurological Exam Neurological exam: Alert, Oriented x3 - Psychiatric Exam Psychiatric exam: Normal Affect - Skin Skin Exam: Dry, Intact Discharge Plan - Discharge Medications Prescriptions: Clopidogrel [Plavix] 75 mg PO DAILY #30 tab Collagenase [Santyl] 1 applic TOP DAILY #1 tube FLUoxetine [Prozac] 20 mg PO DAILY #30 cap Furosemide [Lasix] 40 mg PO DAILY #30 tab Losartan [Cozaar] 25 mg PO DAILY #30 tab Metoprolol Succinate XL [Toprol XL] 75 mg PO DAILY #30 tab Pantoprazole [Protonix EC Tab] 40 mg PO DAILY #30 ect Rivaroxaban [Xarelto] 10 mg PO QD5 #30 tab Rosuvastatin Calcium [Crestor] 5 mg PO DAILY #30 tab - Follow Up Plan Condition: GOOD Disposition: HOME/ ROUTINE
[2017-09-23] MEDS: Santyl Collagenase OINTMENT TOP SCH (10:38)
== END 2017-09-23 11:15 | disposition home or self-care (01) | DRG 315 ==
LOC: H.TCU 09-07 17:11
PROC: F07Z9FZ Gait Training/Functional Ambulation Treatment using Assistive, Adaptive, Supportive or Protective Equipment (ICD-10-PCS; principal; 2017-09-07)
PROC: F08Z4FZ Home Management Treatment using Assistive, Adaptive, Supportive or Protective Equipment (ICD-10-PCS; 2017-09-07)
PROC: F07L6FZ Therapeutic Exercise Treatment of Musculoskeletal System - Lower Back / Lower Extremity using Assistive, Adaptive, Supportive or Protective Equipment (ICD-10-PCS; 2017-09-08)
PROC: 3E0U3BZ Introduction of Anesthetic Agent into Joints, Percutaneous Approach (ICD-10-PCS; 2017-09-22)
DX: I42.0 Dilated cardiomyopathy (principal); L97.329 Non-pressure chronic ulcer of left ankle with unspecified severity; I11.0 Hypertensive heart disease with heart failure; I48.2 Chronic atrial fibrillation; I35.0 Nonrheumatic aortic (valve) stenosis; I87.8 Other specified disorders of veins; I73.9 Peripheral vascular disease, unspecified; I25.10 Atherosclerotic heart disease of native coronary artery without angina pectoris; I50.9 Heart failure, unspecified; L97.529 Non-pressure chronic ulcer of other part of left foot with unspecified severity; M17.12 Unilateral primary osteoarthritis, left knee; M25.562 Pain in left knee; Z95.2 Presence of prosthetic heart valve; Z95.810 Presence of automatic (implantable) cardiac defibrillator; F32.9 Major depressive disorder, single episode, unspecified; Z79.01 Long term (current) use of anticoagulants; Z87.891 Personal history of nicotine dependence; Z79.899 Other long term (current) drug therapy; Z88.0 Allergy status to penicillin

== ENCOUNTER 2018-01-02 08:05 | Emergency (ER) | payer MEDICARE ==
[2018-01-02 08:09] VITALS: BMI 21.4
[2018-01-02] MEDS ORDERED: Lidocaine 5% Patch TD STA ×2 (08:28)
[2018-01-02] MEDS ORDERED: Lidocaine 5% Patch TD ONE (08:43)
--- NOTE | 2018-01-02 09:04 | ED PDOC ---
HPI: Back Time Seen by Provider: 01/02/18 08:23 Chief Complaint (Nursing): Back Pain Chief Complaint (Provider): back pain History Per: Patient History/Exam Limitations: no limitations Onset/Duration Of Symptoms: Sudden Onset (this morning) Current Symptoms Are (Timing): Still Present Quality Of Discomfort: Sharp Severity: Moderate Previous Symptoms: None Associated Symptoms: None Exacerbating Factor(s): Turning, Movement, Standing Additional Complaint(s): 82yo male states had sudden onset L lower back pain this morning while attempting to walk between bathroom and bedroom. Denies falls, trauma, bruising, urinary symptoms or fever. Denies radiation of pain, weakness or numbness. Pain is not midline, rather left sided and worse w movement. Patient is on anticoagulation w NOAC and Plavix. Past Medical History Reviewed: Historical Data, Nursing Documentation, Vital Signs Vital Signs: Last Vital Signs Temp 97.9 F 01/02/18 08:09 Pulse 81 01/02/18 08:09 Resp 17 01/02/18 08:09 BP 147/91 H 01/02/18 08:09 Pulse Ox 97 01/02/18 08:09 - Medical History PMH: Arthritis, Atrial Fibrillation, Bronchitis, HTN - Surgical History Surgical History: Pacemaker ([employer]) Other surgeries: Aortic valve - Family History Family History: States: Unknown Family Hx - Living Arrangements Living Arrangements: Alone - Social History Current smoker - smoking cessation education provided: No - Immunization History Hx Tetanus Toxoid Vaccination: No Hx Influenza Vaccination: Yes Hx Pneumococcal Vaccination: Yes - Home Medications Home Medications: Ambulatory Orders Medication Instructions Recorded RX: Clopidogrel [Plavix] 75 mg PO DAILY #30 tab 09/23/17 RX: Collagenase [Santyl] 1 applic TOP DAILY #1 tube 09/23/17 RX: FLUoxetine [Prozac] 20 mg PO DAILY #30 cap 09/23/17 RX: Furosemide [Lasix] 40 mg PO DAILY #30 tab 09/23/17 RX: Losartan [Cozaar] 25 mg PO DAILY #30 tab 09/23/17 RX: Metoprolol Succinate XL 75 mg PO DAILY #30 tab 09/23/17 [Toprol XL] RX: Pantoprazole [Protonix EC Tab] 40 mg PO DAILY #30 ect 09/23/17 RX: Rivaroxaban [Xarelto] 10 mg PO QD5 #30 tab 09/23/17 RX: Rosuvastatin Calcium [Crestor] 5 mg PO DAILY #30 tab 09/23/17 RX: Acetaminophen [Pain Reliever] 500 mg PO Q6 PRN #12 tablet 01/02/18 - Allergies Allergies/Adverse Reactions: Allergies Allergy/AdvReac Type Severity Reaction Status Date / Time penicillin V Allergy Severe RASH/HIVES Verified 09/07/17 17:55 Review of Systems Constitutional: Negative for: Fever ENT: Negative for: Ear Discharge, Nose Discharge, Throat Pain Cardiovascular: Negative for: Chest Pain Respiratory: Negative for: Shortness of Breath Gastrointestinal: Negative for: Nausea, Vomiting, Abdominal Pain, Diarrhea, Hematochezia, Hematemesis Genitourinary Male: Negative for: Dysuria, Incontinence, Hematuria Musculoskeletal: Positive for: Back Pain. Negative for: Neck Pain, Shoulder Pain, Arm Pain Skin: Negative for: Rash, Lesions, Jaundice Neurological: Negative for: Weakness, Numbness, Headache, Dizziness Physical Exam - Reviewed Nursing Documentation Reviewed: Yes Vital Signs Reviewed: Yes - Physical Exam Appears: Positive for: Non-toxic, No Acute Distress Head Exam: Positive for: ATRAUMATIC, NORMAL INSPECTION, NORMOCEPHALIC Skin: Positive for: Normal Color, Warm, DRY Eye Exam: Positive for: EOMI, Normal appearance, PERRL ENT: Positive for: Normal ENT Inspection Neck: Positive for: Normal, Painless ROM Cardiovascular/Chest: Positive for: Irregularly Irregular Respiratory: Positive for: CNT, Normal Breath Sounds Gastrointestinal/Abdominal: Positive for: Soft. Negative for: Tenderness, Guarding Back: Positive for: Decreased ROM, Muscle Spasm (L lumbar). Negative for: Vertebral Tenderness Extremity: Positive for: Normal ROM. Negative for: Tenderness Neurologic/Psych: Positive for: Alert, Oriented. Negative for: Motor/Sensory Deficits - Laboratory Results Result Diagrams: 01/02/18 09:13 01/02/18 09:13 - ECG O2 Sat by Pulse Oximetry: 97 Medical Decision Making Medical Decision Making: workup for atraumatic paraspinal back pain on anticoagulation initiated labs performed and clinically unremarkable XRay performed w ++DJD CT LSpine performed r/o acute compression fracture, report reviewed and discussed w patient/ Fall prevention discussed at length. He was afterwards ambulatory to baseline with his cane, felt better, Rx tylenol and avoid muscle relaxants for fall risk for now. Followup PMD this week, has appts already. Disposition - Clinical Impression Clinical Impression: Back pain - Patient ED Disposition Is Patient to be Admitted: No Counseled Patient/Family Regarding: Studies Performed, Diagnosis, Need For Followup, Rx Given - Disposition Disposition: Routine/Home Disposition Time: 14:00 Condition: STABLE Additional Instructions: See your doctor for further testing. Return to ER for any new or worsening symptoms. Prescriptions: RX: Acetaminophen [Pain Reliever] 500 mg PO Q6 PRN #12 tablet PRN Reason: Pain, Moderate (4-7) Instructions: Low Back Pain in Adults
[2018-01-02 09:20] LABS: BASO # 0.1 K/uL (0.0-0.2); BASO % 1.2 % (0.0-2.0); EOS # 0.2 K/uL (0.0-0.7); EOS % 2.9 % (0.0-4.0); HEMOGLOBIN 14.5 g/dL (12.0-18.0); LYMPH # 0.6 K/uL (1.0-4.3); LYMPH % 11.4 % (20.0-40.0); MEAN CELL VOLUME 95.1 fl (80.0-94.0); MEAN CORPUSCULAR HEMOGLOBIN 30.8 pg (27.0-31.0); MEAN CORPUSCULAR HGB CONC 32.4 g/dL (33.0-37.0); MEAN PLATELET VOLUME 7.8 fl (7.2-11.7); MONO # 0.7 K/uL (0.0-0.8); MONO % 11.9 % (0.0-10.0); NEUT # 4.1 K/uL (1.8-7.0); NEUT % 72.6 % (50.0-75.0); NRBC % 0.2 % (0.0-0.0); RBC 4.7 Mil/uL (4.40-5.90); RED CELL DISTRIBUTION WIDTH 15.4 % (11.5-14.5); WHITE BLOOD COUNT 5.6 K/uL (4.8-10.8)
[2018-01-02 09:23] LABS: URINE BILIRUBIN NEGATIVE (NEGATIVE); URINE BLOOD NEGATIVE (NEGATIVE); URINE CLARITY SLIGHTY-CLOUDY (Clear); URINE COLOR YELLOW (YELLOW); URINE GLUCOSE (UA) NEG (Normal); URINE HYALINE CAST 0-2 /hpf (0-2); URINE LEUKOCYTE ESTERASE NEG Leu/uL (Negative); URINE PROTEIN NEGATIVE (NEGATIVE); URINE UROBILINOGEN 0.2-1.0 mg/dL (0.2-1.0)
[2018-01-02 09:32] LABS: ALB/GLOB RATIO 1.1 (1.0-2.1); ALBUMIN 3.8 g/dL (3.5-5.0); ALT/SGPT 29 U/L (21-72); AST/SGOT 31 U/L (17-59); BLOOD UREA NITROGEN 17 mg/dl (9-20); CALCIUM 8.9 mg/dL (8.4-10.2); GFR NON-AFRICAN AMERICAN > 60
--- NOTE | 2018-01-02 14:07 | CT ---
Date of service: 01/02/2018 PROCEDURE: CT Lumbar Spine without contrast HISTORY: low back pain COMPARISON: None available. TECHNIQUE: Axial computed tomography images were obtained of the lumbar spine without the use of intravenous contrast. Coronal and sagittal reformatted images were created and reviewed. Radiation dose: Total exam DLP = 1619.01 mGy-cm. This CT exam was performed using one or more of the following dose reduction techniques: Automated exposure control, adjustment of the mA and/or kV according to patient size, and/or use of iterative reconstruction technique. FINDINGS: VERTEBRAE: There is no evidence of destructive bony lesion. Endplate degenerative changes noted more prominent at T12-L1 and L2 vertebrae. DISCS/SPINAL CANAL/NEURAL FORAMINA: L1-2: There is a small posterior osteophyte disc bulge complex associated with posterior ligament and facet joint hypertrophy which resulting in mild spinal stenosis. There is a mild 4 millimeter anterior spondylolisthesis of L2 relative to L1. There is moderate to mildly severe narrowing of the intervertebral disc is space at L1-L2. L2-3: There is a small to moderate-sized posterior osteophyte disc bulge complex associated with posterior ligament and facet joint hypertrophy which resulting mild spinal stenosis. There is a mild grade 1 3 millimeter anterior spondylolisthesis of L3 relative to L2. Moderate intervertebral disc space narrowing associated with vacuum phenomena is also noted. L3-4: There is a small posterior osteophyte disc bulge complex associated with posterior ligament and facet joint hypertrophy which resulting in mild spinal and neural foraminal narrowing. L4-5: There is a small to moderate size osteophyte disc bulge complex associated with posterior ligament and facet joint hypertrophy which resulting in mild spinal stenosis. There is moderate to severe narrowing of the intervertebral disc is space. L5-S1: No evidence of significant spinal or neural foraminal narrowing. Moderate narrowing of the intervertebral disc space noted associated with vacuum phenomena. PARASPINAL SOFT TISSUES: Unremarkable. OTHER FINDINGS: There is moderate scoliosis at the mid and upper lumbar spine. Multilevel arthritic changes in the facet joint noted. The prostate is moderately enlarged. Large hiatus hernia. IMPRESSION: Severe degenerative changes and spondylosis associated with multilevel narrowing of the intervertebral disc is space. Multilevel posterior osteophyte disc bulge complex associated with mild spinal and neural foraminal narrowing. Moderate dextroscoliosis. Moderate arthritic changes of the facet joints.
[2018-01-02 14:44] VITALS: BP 137/84; PULSE 87; RESP 16; TEMP 98.2
--- NOTE | 2018-01-02 14:46 | RAD ---
Date of service: 01/02/2018 PROCEDURE: Radiographs of the Lumbar Spine. HISTORY: low back pain COMPARISON: No prior. FINDINGS: Dextroscoliotic lumbar spinal deformity is appreciated centered at the thoracolumbar junction without acute fracture or spondylolisthesis evident. Lordotic lumbar curvature appears remarkable for potential grade 1 spondylolisthesis at L1-2 and L2-3 with L1 slightly posterior to L2 and L2 borderline posterior to L3. Multilevel spondylosis appears advanced as well as facet arthropathy. The pattern varies depending on scoliosis. No destructive bone lesion appreciable. OTHER FINDINGS: None. IMPRESSION: Dextroscoliotic thoracolumbar spinal deformity varies the pattern of spondylosis and facet arthropathy throughout the lumbar spine. Grade 1 spondylolisthesis L1-2 and L2-3 as discussed above. No definite acute fracture appreciable.
[2018-01-03 10:59] VITALS: O2SAT 97
== END 2018-01-02 14:54 | disposition home or self-care (01) ==
LOC: H.ER 08:05
DX: M54.5 Low back pain (principal); I10 Essential (primary) hypertension; Z95.0 Presence of cardiac pacemaker; Z88.0 Allergy status to penicillin

== ENCOUNTER 2018-01-03 07:22 | Emergency (ER) | payer MEDICARE ==
[2018-01-03 07:22] VITALS: BMI 21.4
[2018-01-03 07:27] VITALS: TEMP 97.8
--- NOTE | 2018-01-03 08:06 | ED PDOC ---
HPI: SOB/CHF/COPD Time Seen by Provider: 01/03/18 07:38 Chief Complaint (Nursing): Back Pain Chief Complaint (Provider): shortness of breath History Per: Patient History/Exam Limitations: no limitations Onset/Duration Of Symptoms: Hrs (x2-3) Current Symptoms Are (Timing): Still Present Additional Complaint(s): 82 year old male with pmHx of CHF, pacemaker, and HTN, arrives to ED for an evaluation of sudden shortness of breath around 0530 this morning. He denies any fever, chills, chest pain, cough, leg pain or swelling. Of note, patient was seen in this ED yesterday for a chronic back complaint, in which, a lumbar CT was performed. Patient reports taking Tylenol for relief upon onset of symptoms but came to ED as he is concerned due to his cardiac disease history. PCP: Dr. Ji Baldwin Past Medical History Reviewed: Historical Data, Nursing Documentation, Vital Signs Vital Signs: Last Vital Signs Temp 97.8 F 01/03/18 07:26 Pulse 87 01/03/18 07:26 Resp 18 01/03/18 07:26 BP 148/97 H 01/03/18 07:26 Pulse Ox 97 01/03/18 07:26 - Medical History PMH: Arthritis, Atrial Fibrillation, Back Problems, Bronchitis, CHF, HTN - Surgical History Surgical History: Pacemaker ([employer]) Other surgeries: atrial valve replacement - Family History Family History: States: Unknown Family Hx - Immunization History Hx Tetanus Toxoid Vaccination: No Hx Influenza Vaccination: Yes Hx Pneumococcal Vaccination: Yes - Home Medications Home Medications: Ambulatory Orders Medication Instructions Recorded Clopidogrel [Plavix] 75 mg PO DAILY #30 tab 09/23/17 Collagenase [Santyl] 1 applic TOP DAILY #1 tube 09/23/17 FLUoxetine [Prozac] 20 mg PO DAILY #30 cap 09/23/17 Furosemide [Lasix] 40 mg PO DAILY #30 tab 09/23/17 Losartan [Cozaar] 25 mg PO DAILY #30 tab 09/23/17 Metoprolol Succinate XL [Toprol XL] 75 mg PO DAILY #30 tab 09/23/17 Pantoprazole [Protonix EC Tab] 40 mg PO DAILY #30 ect 09/23/17 Rivaroxaban [Xarelto] 10 mg PO QD5 #30 tab 07/27/18 Rosuvastatin Calcium [Crestor] 5 mg PO DAILY #30 tab 09/23/17 Acetaminophen [Pain Reliever] 500 mg PO Q6 PRN #12 tablet 01/02/18 - Allergies Allergies/Adverse Reactions: Allergies Allergy/AdvReac Type Severity Reaction Status Date / Time penicillin V Allergy Severe RASH/HIVES Verified 09/07/17 17:55 Review of Systems ROS Statement: Except As Marked, All Systems Reviewed And Found Negative Constitutional: Negative for: Fever, Chills Cardiovascular: Negative for: Chest Pain Respiratory: Positive for: Shortness of Breath. Negative for: Cough Musculoskeletal: Positive for: Back Pain (chronic). Negative for: Leg Pain (or swelling) Physical Exam - Reviewed Nursing Documentation Reviewed: Yes Vital Signs Reviewed: Yes - Physical Exam Appears: Positive for: Non-toxic, No Acute Distress Head Exam: Positive for: ATRAUMATIC, NORMAL INSPECTION, NORMOCEPHALIC Skin: Positive for: Normal Color Eye Exam: Positive for: Normal appearance, EOMI, PERRL ENT: Positive for: Normal ENT Inspection Neck: Positive for: Normal Cardiovascular/Chest: Positive for: Regular Rate, Rhythm, Chest Non Tender Respiratory: Positive for: Normal Breath Sounds. Negative for: Wheezing, Respiratory Distress Gastrointestinal/Abdominal: Positive for: Normal Exam, Soft Back: Positive for: Vertebral Tenderness (bilateral paralumbar), Muscle Spasm ( lumbar) Extremity: Positive for: Normal ROM (upper/lower). Negative for: Pedal Edema, Calf Tenderness Neurologic/Psych: Positive for: Alert, Oriented, Gait (assisted with cane). Negative for: Motor/Sensory Deficits - Laboratory Results Result Diagrams: 01/03/18 08:41 01/03/18 08:41 - ECG O2 Sat by Pulse Oximetry: 97 (RA) Pulse Ox Interpretation: Normal - Progress Re-evaluation Time: 13:05 Condition: Re-examined, Improved Medical Decision Making Medical Decision Making: Initial Impression: Dyspnea; Back pain Differential Diagnosis: CHF exacerbation, ACS, PE, DJD, and arthritis of spine Initial Plan: * EKG * Labs * CXR * Flexeril 10mg PO Time: 744 --Previous chart reviewed: CT Lumbar spine (01/02/18) IMPRESSION: Severe degenerative changes and spondylosis associated with multilevel narrowing of the intervertebral disc is space. Multilevel posterior osteophyte disc bulge complex associated with mild spinal and neural foraminal narrowing. Moderate dextroscoliosis. Moderate arthritic changes of the facet joints. Time: 0948 --CXR FINDINGS: LUNGS: No active pulmonary disease. PLEURA: No significant pleural effusion identified, no pneumothorax apparent. CARDIOVASCULAR: Calcific atherosclerotic changes are seen related to the thoracic aorta. Prominent cardiac silhouette is appreciated. Bipolar AICD/pacemaker in situ with generator the left pectoralis region and multiple leads entering into the chest via left subclavian approach terminating at the heart. Prior valvular stent deployment identified in the heart. No pulmonary vascular congestion. OSSEOUS STRUCTURES: No significant abnormalities. VISUALIZED UPPER ABDOMEN: Normal. OTHER FINDINGS: None. IMPRESSION: Prominent cardiac silhouette. No infiltrate or pulmonary vascular congestion appreciable. Pacemaker and valvular stent in situ as discussed above. Time: 949 --CTA chest additionally ordered for further evaluation of chest pain. Time: 1138 --CTA chest FINDINGS: PULMONARY ARTERIES: Good pulmonary artery opacification is appreciated with no CT evidence of pulmonary embolism. AORTA AND HEART: The ascending thoracic aorta is dilated to 4.2 cm with atherosclerotic calcification related. The remainder of the thoracic aorta is normal in caliber. An aortic valve stent is in position with cardiomegaly present as well as dist dilated left atrium and lateral ventricle a small right atrium identified. Reflux of iodinated contrast material is identified into the inferior vena cava and hepatic veins. No pericardial effusion identified. AICD/pacemaker leads identified terminating at the right heart with generator at the left pectoralis region and leads extending into the left subclavian vein. LUNGS: Limited fibrotic changes seen the bilateral pulmonary apices with calcified granulomata appreciated bilaterally as well. Trace peripheral fibrotic changes seen at the bilateral upper and lower lobes as well as right middle lobe without alveolitis identified. No dominant mass identified bilaterally including the c entral airways though a small 4 mm noncalcified solid, subpleural nodule is identified at the right lower lobe image 177, series 4. A 3 mm noncalcified solid nodule is noncalcified at the left apex in image 32. PLEURAL SPACES: Unremarkable. No effusion or pneumothorax. LYMPH NODES: No lymphadenopathy. Large hiatal hernia is encountered. BONES, CHEST WALL: Unremarkable. No fracture or destructive lesion OTHER FINDINGS: Cholelithiasis. Calcified atherosclerotic upper abdominal aorta appears non aneurysmal. IMPRESSION: 1. No CT evidence of pulmonary embolus. No pulmonary infiltrates, effusions or pneumothoraces acutely evident bilaterally. 2. Limited peripheral pulmonary fibrosis. Tiny noncalcified solid nodules are identified at the left apex as well as right lower lobe as discussed above. Consider follow-up CT in 1 year utilizing low-dose screening CT of the chest to further demonstrate stability. Lung rads 2. 3. Mild dilatation of the ascending thoracic aorta up to 4.2 cm taper to a normal caliber by the anterior to mid arch level. 4. Cardiomegaly. AICD/pacemaker deployment as discussed above. Scribe Attestation: Documented by Amy Mane, acting as a scribe for Blanca Harden MD. Provider Scribe Attestation: All medical record entries made by the Scribe were at my direction and personally dictated by me. I have reviewed the chart and agree that the record accurately reflects my personal performance of the history, physical exam, medical decision making, and the department course for this patient. I have also personally directed, reviewed, and agree with the discharge instructions and disposition. Disposition - Clinical Impression Clinical Impression: Low back pain, Dyspnea, CHF (congestive heart failure) - Patient ED Disposition Is Patient to be Admitted: No Doctor Will See Patient In The: Office Counseled Patient/Family Regarding: Studies Performed, Diagnosis, Need For Followup - Disposition Referrals: Ji Baldwin DO [Family Provider] - Disposition: Routine/Home Disposition Time: 13:07 Condition: GOOD Additional Instructions: CHARLES VEE, thank you for letting us take care of you today. Your provider was Blanca Harden MD and you were treated for BACK PAIN. The emergency medical care you received today was directed at your acute symptoms. If you were prescribed any medication, please fill it and take as directed. It may take several days for your symptoms to resolve. Return to the Emergency Department if your symptoms worsen, do not improve, or if you have any other problems. Please contact your doctor or call one of the physicians/clinics you have been referred to that are listed on the Patient Visit Information form that is included in your discharge packet. Bring any paperwork you were given at discharge with you along with any medications you are taking to your follow up visit. Our treatment cannot replace ongoing medical care by a primary care provider outside of the emergency department. Thank you for allowing the [facility] team to be part of your care today. If you had an X-Ray or CT scan: A Radiologist will review the ED reading if any change in treatment is needed we will contact you. If you had a blood, urine, or wound culture: It will take several days for the results, if any change in treatment is needed we will contact you. If you had an STI test: It will take 48 hours for the results. Please call after 1 week if you have not heard back. Instructions: Low Back Pain (DC), Shortness of Breath (Dyspnea) (DC), Heart Failure, Adult (DC) Forms: [employer] ([place])
[2018-01-03 08:45] LABS: BASO # 0.1 K/uL (0.0-0.2); BASO % 1.3 % (0.0-2.0); EOS # 0.2 K/uL (0.0-0.7); HEMOGLOBIN 14.6 g/dL (12.0-18.0); LYMPH # 0.6 K/uL (1.0-4.3); MEAN CELL VOLUME 95.7 fl (80.0-94.0); MEAN CORPUSCULAR HEMOGLOBIN 31.1 pg (27.0-31.0); MEAN CORPUSCULAR HGB CONC 32.5 g/dL (33.0-37.0); MEAN PLATELET VOLUME 7.8 fl (7.2-11.7); MONO # 0.7 K/uL (0.0-0.8); MONO % 11.8 % (0.0-10.0); NEUT # 4.2 K/uL (1.8-7.0); NEUT % 72.9 % (50.0-75.0); NRBC % 0.1 % (0.0-0.0); RBC 4.68 Mil/uL (4.40-5.90); RED CELL DISTRIBUTION WIDTH 15.6 % (11.5-14.5); WHITE BLOOD COUNT 5.8 K/uL (4.8-10.8)
[2018-01-03 08:59] LABS: BLOOD UREA NITROGEN 18 mg/dl (9-20); CALCIUM 8.8 mg/dL (8.4-10.2); GFR NON-AFRICAN AMERICAN > 60
[2018-01-03 09:13] LABS: B-TYPE NATRIURETIC PEPTIDE 2200 pg/ml (0-900)
--- NOTE | 2018-01-03 09:51 | RAD ---
Date of service: 01/03/2018 HISTORY: dyspnea COMPARISON: None available. FINDINGS: LUNGS: No active pulmonary disease. PLEURA: No significant pleural effusion identified, no pneumothorax apparent. CARDIOVASCULAR: Calcific atherosclerotic changes are seen related to the thoracic aorta. Prominent cardiac silhouette is appreciated. Bipolar AICD/pacemaker in situ with generator the left pectoralis region and multiple leads entering into the chest via left subclavian approach terminating at the heart. Prior valvular stent deployment identified in the heart. No pulmonary vascular congestion. OSSEOUS STRUCTURES: No significant abnormalities. VISUALIZED UPPER ABDOMEN: Normal. OTHER FINDINGS: None. IMPRESSION: Prominent cardiac silhouette. No infiltrate or pulmonary vascular congestion appreciable. Pacemaker and valvular stent in situ as discussed above.
[2018-01-03] MEDS ORDERED: Sodium Chloride 0.9% 50 ML IV ONE (10:46)
[2018-01-03] MEDS ORDERED: Iodixanol 320 MG/ML 100 ML BOTTLE IV ONE (10:46)
--- NOTE | 2018-01-03 11:43 | CT ---
Date of service: 01/03/2018 PROCEDURE: CT Chest with contrast (Pulmonary Angiogram) HISTORY: chest pain COMPARISON: Chest radiograph 01/03/2018. TECHNIQUE: Axial computed tomography images were obtained of the chest in the pulmonary arterial phase of enhancement. Coronal and sagittal reformatted images were created and reviewed. Intravenous contrast dose: Visipaque 320, 99 cc Radiation dose: Total exam DLP = 824.67 mGy-cm. This CT exam was performed using one or more of the following dose reduction techniques: Automated exposure control, adjustment of the mA and/or kV according to patient size, and/or use of iterative reconstruction technique. FINDINGS: PULMONARY ARTERIES: Good pulmonary artery opacification is appreciated with no CT evidence of pulmonary embolism. AORTA AND HEART: The ascending thoracic aorta is dilated to 4.2 cm with atherosclerotic calcification related. The remainder of the thoracic aorta is normal in caliber. An aortic valve stent is in position with cardiomegaly present as well as dist dilated left atrium and lateral ventricle a small right atrium identified. Reflux of iodinated contrast material is identified into the inferior vena cava and hepatic veins. No pericardial effusion identified. AICD/pacemaker leads identified terminating at the right heart with generator at the left pectoralis region and leads extending into the left subclavian vein. LUNGS: Limited fibrotic changes seen the bilateral pulmonary apices with calcified granulomata appreciated bilaterally as well. Trace peripheral fibrotic changes seen at the bilateral upper and lower lobes as well as right middle lobe without alveolitis identified. No dominant mass identified bilaterally including the central airways though a small 4 mm noncalcified solid, subpleural nodule is identified at the right lower lobe image 177, series 4. A 3 mm noncalcified solid nodule is noncalcified at the left apex in image 32. PLEURAL SPACES: Unremarkable. No effusion or pneumothorax. LYMPH NODES: No lymphadenopathy. Large hiatal hernia is encountered. BONES, CHEST WALL: Unremarkable. No fracture or destructive lesion OTHER FINDINGS: Cholelithiasis. Calcified atherosclerotic upper abdominal aorta appears non aneurysmal. IMPRESSION: 1. No CT evidence of pulmonary embolus. No pulmonary infiltrates, effusions or pneumothoraces acutely evident bilaterally. 2. Limited peripheral pulmonary fibrosis. Tiny noncalcified solid nodules are identified at the left apex as well as right lower lobe as discussed above. Consider follow-up CT in 1 year utilizing low-dose screening CT of the chest to further demonstrate stability. Lung rads 2. 3. Mild dilatation of the ascending thoracic aorta up to 4.2 cm taper to a normal caliber by the anterior to mid arch level. 4. Cardiomegaly. AICD/pacemaker deployment as discussed above.
[2018-01-03 14:15] VITALS: BP 146/78; PULSE 76; RESP 16; O2SAT 98
--- NOTE | 2018-01-03 18:52 | CARD ---
APPROVED REPORT Date of service: 01/03/2018 EKG Measurement Heart [id number] <Conclusion> Ventricular-paced rhythm with occasional premature ventricular complexes Abnormal ECG
== END 2018-01-03 14:00 | disposition home or self-care (01) ==
LOC: H.ER 07:22
DX: R06.00 Dyspnea, unspecified (principal); I50.9 Heart failure, unspecified; M54.5 Low back pain; I11.0 Hypertensive heart disease with heart failure; J84.10 Pulmonary fibrosis, unspecified; Z95.810 Presence of automatic (implantable) cardiac defibrillator; K80.20 Calculus of gallbladder without cholecystitis without obstruction; K44.9 Diaphragmatic hernia without obstruction or gangrene; Z88.0 Allergy status to penicillin; I48.91 Unspecified atrial fibrillation; Z95.0 Presence of cardiac pacemaker; Z95.2 Presence of prosthetic heart valve; I49.3 Ventricular premature depolarization; J44.9 Chronic obstructive pulmonary disease, unspecified; K21.9 Gastro-esophageal reflux disease without esophagitis
CPT/HCPCS: 71045; 71275; 80048; 83880; 84484; 85025; 85378; 93005; 96374; 99283; J1940; Q9967

== ENCOUNTER 2018-01-03 14:52 | Inpatient (IN) | payer MEDICARE ==
[2018-01-03 14:52] VITALS: BMI 21.4
--- NOTE | 2018-01-03 17:47 | RAD ---
Date of service: 01/03/2018 PROCEDURE: Left Knee Radiographs. HISTORY: Pain. COMPARISON: None. FINDINGS: BONES: There is no acute displaced fracture or bone destruction. Bone alignment is normal. There is severe diffuse bone demineralization. JOINTS: There is severe tricompartmental degenerative osteoarthrosis with reduced joint spaces, marginal osteophytes and tibial spiking, worse in the the lateral compartment. JOINT EFFUSION: None. OTHER FINDINGS: There are advanced atherosclerotic vascular calcifications. IMPRESSION: Severe tricompartmental degenerative osteoarthrosis, worse in the lateral compartment.
--- NOTE | 2018-01-03 18:24 | ED PDOC ---
Lower Extremity Pain/Injury Time Seen by Provider: 01/03/18 16:34 Chief Complaint (Nursing): Lower Extremity Problem/Injury Chief Complaint (Provider): Lower Extremity Problem/Injury History Per: Patient History/Exam Limitations: no limitations Onset/Duration Of Symptoms: Hrs Current Symptoms Are (Timing): Still Present Additional Complaint(s): 82 year old male with a past medical history of HTN, HLD, A-fib, PPM, CHF, venous stasis with chronic LE ulcers (being seen by vascular surgeon), who presents to the ED after sustaining a fall onto his left knee. Patient came to ED earlier today complaining of shortness of breath but was discharged at 1430. He states he felt his left knee buckle under him while he was using cane when he struck his knee on the ground. Patient states his gait was unsteady so he wanted to come back to make sure nothing was wrong. Patient denies dizziness, palpitation, chest pain, shortness of breath, visual disturbances, speech impediment, or weakness unilaterally. He was also here x2-3 days ago for back pain that showed degenerative joint disease without fracture. PMD: no provider - Knee Description Of Injury: Fell, Struck Against Object Past Medical History Reviewed: Historical Data, Nursing Documentation, Vital Signs Vital Signs: Last Vital Signs Temp 98.7 F 01/03/18 15:19 Pulse 54 L 01/03/18 15:19 Resp 18 01/03/18 15:19 BP 134/77 01/03/18 15:19 Pulse Ox 98 01/03/18 15:19 - Medical History PMH: Arthritis, Atrial Fibrillation, Back Problems, Bronchitis, CHF (EF 40 - 45%), HTN - Surgical History Surgical History: Pacemaker ([employer]) - Family History Family History: States: Unknown Family Hx - Living Arrangements Living Arrangements: Alone - Social History Current smoker - smoking cessation education provided: No Ex-Smoker (has not smoked in the last 12 months): No Alcohol: None Drugs: Denies - Immunization History Hx Tetanus Toxoid Vaccination: No Hx Influenza Vaccination: Yes Hx Pneumococcal Vaccination: Yes - Home Medications Home Medications: Ambulatory Orders Medication Instructions Recorded Clopidogrel [Plavix] 75 mg PO DAILY #30 tab 09/23/17 FLUoxetine [Prozac] 20 mg PO DAILY #30 cap 09/23/17 Furosemide [Lasix] 40 mg PO DAILY #30 tab 09/23/17 Losartan [Cozaar] 25 mg PO DAILY #30 tab 09/23/17 Metoprolol Succinate XL [Toprol XL] 75 mg PO DAILY #30 tab 09/23/17 Pantoprazole [Protonix EC Tab] 40 mg PO DAILY #30 ect 09/23/17 Rivaroxaban [Xarelto] 10 mg PO QD5 #30 tab 09/23/17 Rosuvastatin Calcium [Crestor] 5 mg PO DAILY #30 tab 09/23/17 Lidocaine 1 each TP DAILY #10 adh..patch 01/03/18 - Allergies Allergies/Adverse Reactions: Allergies Allergy/AdvReac Type Severity Reaction Status Date / Time penicillin V Allergy Severe RASH/HIVES Verified 01/03/18 15:18 Review of Systems ROS Statement: Except As Marked, All Systems Reviewed And Found Negative Eyes: Negative for: Vision Change Cardiovascular: Positive for: Chest Pain Respiratory: Negative for: Shortness of Breath Musculoskeletal: Positive for: Other (knee pain). Negative for: Neck Pain Neurological: Negative for: Weakness, Incoordination, Confusion, Dizziness Physical Exam - Reviewed Nursing Documentation Reviewed: Yes Vital Signs Reviewed: Yes - Physical Exam Head Exam: Positive for: ATRAUMATIC Eye Exam: Positive for: Normal appearance, EOMI, PERRL ENT: Positive for: Normal ENT Inspection Neck: Positive for: Painless ROM Cardiovascular/Chest: Positive for: Regular Rate, Rhythm. Negative for: Murmur Respiratory: Positive for: Normal Breath Sounds. Negative for: Respiratory Distress Gastrointestinal/Abdominal: Positive for: Normal Exam Extremity: Positive for: Normal ROM (Good ROM of knee), Tenderness (Mild pain on palpation), Swelling (mild swelling on lateral portion of left knee with mild ecchymosis a), Other (good passive and active flexion and extension; left lower extremity with skin hyper pigmentation changes with an aproximal 6 cm oblique ulceration with granulation tissue on the left medial malleolus and 1 punctate area of mild serous drainage. Mild erythema noted around ulceration; (-) warmth, (-) fluctuance) Lymphatic: Positive for: Normal Exam Neurologic/Psych: Positive for: Alert, Oriented, Other (strength is equal in bilateral upper and lower extremities; hand literacy teacher strength is equal bilaterally; sensation to light touch is intact in upper and lower extremities; ) - ECG O2 Sat by Pulse Oximetry: 98 (RA) Pulse Ox Interpretation: Normal Medical Decision Making Medical Decision Making: Initial Time: 16:55 Initial Plan: --Left knee x-ray --Ibuprofen 600 mg PO --Dry dressing for the ulcer on the left medial malleolus Left knee X-ray: severe tricompartemental osteoarthrosis of the Left knee, worse in lateral compartment. Re-evaluated 19:00, persistent Left knee pain, CT knee ordered CT knee: No acute fracture. 2. Severe osteoarthritis w/ extensive osteophytic disease and severe joint space narrowing. 3. Osteopenia. 4. Focal cystic lesion with areas of cortical breakthrough is seen w/i the lateral aspect of the patella, 2.1 x 1.7cm. Consider f/u with MRI. MICHEL bandage to Left knee Re-eval: 22:00: pt still c/o inability to bear weight and fear of falling. Ambulating with unsteady gait with nurse. Admit for intractable knee pain under Dr. Chirinos. Scribe Attestation: Documented by Kevan Hoffmann, acting as a scribe for Carisa Harrington PA-C. Provider Scribe Attestation: All medical record entries made by the Scribe were at my direction and personally dictated by me. I have reviewed the chart and agree that the record accurately reflects my personal performance of the history, physical exam, medical decision making, and the department course for this patient. I have also personally directed, reviewed, and agree with the discharge instructions and disposition. Disposition - Clinical Impression Clinical Impression: Knee pain - Patient ED Disposition Is Patient to be Admitted: Yes Discussed With : Dmitry Chirinos Doctor Will See Patient In The: Hospital Counseled Patient/Family Regarding: Studies Performed, Diagnosis - Disposition Disposition Time: 23:25 Condition: STABLE
--- NOTE | 2018-01-04 07:46 | CP.PCM.HP ---
<[address] - Last Filed: 01/04/18 13:15> History of Present Illness - History of Present Illness History of Present Illness: 82 y/o M admitted for evaluation of inability to ambulate after left knee trauma. Pt explains falling on his L knee while using his cane to ambulate, after this episodes, pt was feeling unsecured and unsafe about walking by himself since he feels his Knee will give out. Pt denies dizziness, palpitation, chest pain, SOB, visual disturbances, speech impediment, or weakness unilaterally. Pt was liv nd examined today with Dr Chirinos. Pt reports still feeling mild pain of his L knee. Pt afebrile, tolerating PO, with NO acute events overnight. PMD: Dr. Baldwin Medical Education Coordinator: Dr. Pan -Medications: Plavix 75mg dialy; Valsartan 40mg daily; Crestor 5mg daily; Xarelta 10mg dialy; protonix 40mg daily; metoprolol tartrate 25mg daily; Lasix 40mg dialy; Fluoxetine 20mg daily -Allergy: Penicillin (swelling) -PMHx: HTN; Afib; PVD; left heel ulcer (6 months); mandibular cyst -PSHx: TAVR - aortic valve replacement 09/2014; Pacemaker 09/2014-last interrogated was last week; 2 veins removed in his left lower extremity (04/2017 and 2014) -FHx: Dad - heart disease; at 49yo due to coronary thrombosis; Mom - heart disease; paternal uncle - heart disease -SHx: quit smoking 30 years ago; previously smoked for 20 years about 1ppd; drinks 1 beer on a Tuesday; denies illicit drug use; lives home 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; 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 Present on Admission - Present on Admission Any Indicators Present on Admission: No Review of Systems - Constitutional Constitutional: absent: Chills, Fever - EENT Eyes: absent: Change in Vision Nose/Mouth/Throat: absent: Odynophagia, Sore Throat, Neck Pain - Cardiovascular Cardiovascular: absent: Chest Pain, Palpitations - Respiratory Respiratory: absent: Cough, Dyspnea, Hemoptysis, Wheezing - Gastrointestinal Gastrointestinal: absent: Abdominal Pain, Bloating, Nausea, Vomiting - Genitourinary Genitourinary: absent: Dysuria, Flank Pain, Hematuria Past Patient History - Infectious Disease Hx of Infectious Diseases: None - Past Medical History & Family History Past Medical History?: Yes - Past Social History Smoking Status: Never Smoked - CARDIAC Hx Cardiac Disorders: Yes Hx Atrial Fibrillation: Yes Hx Congestive Heart Failure: Yes Hx Hypertension: Yes - PULMONARY Hx Respiratory Disorders: Yes Hx Bronchitis: Yes - NEUROLOGICAL Hx Neurological Disorder: No Hx Paralysis: No - HEENT Hx HEENT Problems: Yes Hx Blind: Yes - ENDOCRINE/METABOLIC Hx Endocrine Disorders: No - HEMATOLOGICAL/ONCOLOGICAL Hx AIDS: No Hx Hepatitis C: No Hx Human Immunodeficiency Virus (HIV): No - INTEGUMENTARY Hx Dermatological Problems: No Hx Basil Cell: No Hx Lucas: No Hx Cellulitis: No Hx Eczema: No Hx Melanoma: No Hx Psoriasis: No Hx Squamous Cell: No - MUSCULOSKELETAL/RHEUMATOLOGICAL Hx Musculoskeletal Disorders: Yes Hx Falls: Yes - GASTROINTESTINAL Hx Gastrointestinal Disorders: No - GENITOURINARY/GYNECOLOGICAL Hx Genitourinary Disorders: No - PSYCHIATRIC Hx Substance Use: No - SURGICAL HISTORY Hx Surgeries: Yes Other/Comment: pacemaker, valve replacement 2014 - ANESTHESIA Hx Anesthesia: Yes Hx Anesthesia Reactions: No Hx Malignant Hyperthermia: No Meds Allergies/Adverse Reactions: Allergies Allergy/AdvReac Type Severity Reaction Status Date / Time penicillin V Allergy Severe RASH/HIVES Verified 01/03/18 15:18 Physical Exam - Constitutional Appears: No Acute Distress - Head Exam Head Exam: ATRAUMATIC, NORMAL INSPECTION - Eye Exam Eye Exam: EOMI - ENT Exam ENT Exam: Mucous Membranes Dry - Neck Exam Neck exam: Positive for: Full Rom. Negative for: Meningismus - Respiratory Exam Respiratory Exam: NORMAL BREATHING PATTERN. absent: Rales, Rhonchi, Wheezes - Cardiovascular Exam Cardiovascular Exam: REGULAR RHYTHM, +S1, +S2 - GI/Abdominal Exam GI & Abdominal Exam: Soft. absent: Distended, Guarding, Rebound, Tenderness - Extremities Exam Extremities exam: Positive for: tenderness (over anterior L knee). Negative for: full ROM - Back Exam Back exam: absent: CVA tenderness (L), CVA tenderness (R) - Neurological Exam Neurological exam: Alert, Oriented x3 Results - Vital Signs Recent Vital Signs: Last Vital Signs Temp 97.4 F L 01/04/18 00:50 Pulse 84 01/04/18 00:50 Resp 18 11/07/18 00:50 BP 124/73 01/04/18 00:50 Pulse Ox 95 01/04/18 00:50 Assessment & Plan - Assessment and Plan (Free Text) Assessment: 82 y/o M admitted for evaluation and management of inability to ambulate after left knee trauma. -CT of Left knee: degenerative changes, focal cystic lesion in patella. No fracture, PLAN: --Stable --Orthopedic Surgery consult, Dr Day. F/U recommendations --Home meds resumed. --Physical therapy --Continue management as ordered. Case discussed with Dr Candis Rizo, PGY-2 - Date & Time Date: 01/04/18 Time: 09:00 <Dmitry Chirinos - Last Filed: 01/07/18 06:54> Results - Vital Signs Recent Vital Signs: Last Vital Signs Temp 97.6 F 01/07/18 01:16 Pulse 80 01/07/18 01:16 Resp 20 01/07/18 01:16 BP 117/79 01/07/18 01:16 Pulse Ox 96 01/07/18 01:16 - Labs Result Diagrams: 01/06/18 05:40 01/06/18 05:40 Labs: Laboratory Results - last 24 hr 01/06/18 05:40 Sodium 140 Potassium 4.2 Chloride 99 Carbon Dioxide 29 Anion Gap 16 BUN 26 H Creatinine 0.8 Est GFR ( Amer) > 60 Est GFR (Non-Af Amer) > 60 Random Glucose 94 Calcium 9.8 Total Bilirubin 1.0 AST 34 ALT 28 Alkaline Phosphatase 138 H D Total Protein 8.4 H Albumin 4.4 Globulin 4.0 H Albumin/Globulin Ratio 1.1 Assessment & Plan - Assessment and Plan (Free Text) Assessment: Patient was personally seen and examined by me in rounds with residents. Available labs and diagnostic data reviewed. Case, Patient's condition and management plan discussed with residents in rounds. Agree with resident's progress note. Plan: As ordered.
--- NOTE | 2018-01-04 09:04 | CT ---
Date of service: 01/03/2018 PROCEDURE: HISTORY: persist Left knee pain COMPARISON: TECHNIQUE: FINDINGS: No evidence of fracture dislocation. Osteopenia. Focal cystic lesion with cortical disruption in the lateral aspect of the patella measuring 2.1 x 1.7 centimeters. No evidence of soft tissue mass. Cystic degenerative changes in the tibial plateau. Severe tricompartmental joint space narrowing with marginal spur formation. IMPRESSION: No effusion. No acute fracture. Degenerative changes. Focal cystic lesion in the patella.
[2018-01-04] MEDS: Pantoprazole 40 mg EC Tab PO SCH (10:00)
--- NOTE | 2018-01-04 11:17 | CP.PCM.CON ---
History of Present Illness - History of Present Illness History of Present Illness: Orthopedic consult: Dr. Day Patient is an 82 y/o male with multiple comorbidities who presents with complaints of severe left knee pain. He has had left knee pain for many years being managed conservatively by his refractory manager. However, following a recent fall, the pain became unbearable. Pain is dull aching and constant. It is located diffuse medially and predominantly laterally. He has been unable to bear weight due to pain and feels very unstable. He usually walks with a cane. Patient was planning for L TKA and was obtaining cardiac clearance, pending nuclear stress test. He has a history of chronic LE ulcers due to PVD and currently has ulceration to his left ankle that has been treated over the past 9 months by a plant specialist. He has been taking Plavix and Xarelto, last dose o Plavix today and Xarelto yesterday. He denies any radiation of pain/numbness/tingling/CP/SOB/N/V/D/fever/melena/dysuria. Review of Systems - Review of Systems All systems: reviewed and no additional remarkable complaints except Review of Systems: as per HPI Past Patient History - Infectious Disease Hx of Infectious Diseases: None - Past Medical History & Family History Past Medical History?: Yes Past Family History: Reviewed and not pertinent - Past Social History Smoking Status: Never Smoked Alcohol: None Drugs: Denies - CARDIAC Hx Cardiac Disorders: Yes Hx Atrial Fibrillation: Yes Hx Congestive Heart Failure: Yes Hx Hypertension: Yes - PULMONARY Hx Respiratory Disorders: Yes Hx Bronchitis: Yes - NEUROLOGICAL Hx Neurological Disorder: No Hx Paralysis: No - HEENT Hx HEENT Problems: Yes Hx Blind: Yes - ENDOCRINE/METABOLIC Hx Endocrine Disorders: No - HEMATOLOGICAL/ONCOLOGICAL Hx AIDS: No Hx Hepatitis C: No Hx Human Immunodeficiency Virus (HIV): No - INTEGUMENTARY Hx Dermatological Problems: No Hx Basil Cell: No Hx Lucas: No Hx Cellulitis: No Hx Eczema: No Hx Melanoma: No Hx Psoriasis: No Hx Squamous Cell: No - MUSCULOSKELETAL/RHEUMATOLOGICAL Hx Musculoskeletal Disorders: Yes Hx Falls: Yes - GASTROINTESTINAL Hx Gastrointestinal Disorders: No - GENITOURINARY/GYNECOLOGICAL Hx Genitourinary Disorders: No - PSYCHIATRIC Hx Substance Use: No - SURGICAL HISTORY Hx Surgeries: Yes Other/Comment: pacemaker, valve replacement 2015 APR - ANESTHESIA Hx Anesthesia: Yes Hx Anesthesia Reactions: No Hx Malignant Hyperthermia: No Meds Allergies/Adverse Reactions: Allergies Allergy/AdvReac Type Severity Reaction Status Date / Time penicillin V Allergy Severe RASH/HIVES Verified 01/03/18 15:18 - Medications Medications: Current Medications Acetaminophen (Tylenol 325mg Tab) 650 mg PO Q6 PRN PRN Reason: Pain, severe (8-10) Atorvastatin Calcium (Lipitor) 10 mg PO DAILY [facility] Last Admin: 01/04/18 10:00 Dose: 10 mg Clopidogrel Bisulfate (Plavix) 75 mg PO DAILY [facility] Last Admin: 01/04/18 10:00 Dose: 75 mg Fluoxetine HCl (Prozac) 20 mg PO DAILY [facility] Furosemide (Lasix) 40 mg PO DAILY [facility] Last Admin: 01/04/18 10:00 Dose: 40 mg Ibuprofen (Motrin Tab) 600 mg PO Q8 PRN PRN Reason: Pain, moderate (4-7) Lidocaine (Lidoderm) 1 ea TD DAILY [facility] Losartan Potassium (Cozaar) 25 mg PO DAILY [facility] Metoprolol Succinate (Toprol Xl) 75 mg PO DAILY [facility] Pantoprazole Sodium (Protonix Ec Tab) 40 mg PO DAILY [facility] Last Admin: 01/04/18 10:00 Dose: 40 mg Rivaroxaban (Xarelto) 10 mg PO QD5 [facility]; Protocol Physical Exam - Constitutional Appears: Well, No Acute Distress - Head Exam Head Exam: ATRAUMATIC, NORMOCEPHALIC - Eye Exam Eye Exam: EOMI, Normal appearance, PERRL - ENT Exam ENT Exam: Mucous Membranes Moist - Respiratory Exam Respiratory Exam: NORMAL BREATHING PATTERN - Cardiovascular Exam Cardiovascular Exam: +S1, +S2 - GI/Abdominal Exam GI & Abdominal Exam: Soft. absent: Tenderness - Extremities Exam Additional comments: L knee: mild swelling, mild effusion no lesions/masses/erythema sensation intact SP/DP/TN motor intact EHL/FHL/TA/G calves soft NT L ankle: large ulceration to medial malleolus, small lesion anterior ankle non-palpable pedal/PT pulses - Neurological Exam Neurological exam: Alert, Oriented x3 - Psychiatric Exam Psychiatric exam: Normal Affect, Normal Mood - Skin Skin Exam: Normal Color, Warm Results - Vital Signs Recent Vital Signs: Last Vital Signs Temp 97.9 F 01/04/18 09:00 Pulse 91 H 01/04/18 09:00 Resp 20 01/04/18 09:00 BP 129/72 01/04/18 10:00 Pulse Ox 97 01/04/18 09:00 - Impressions Impression: Accession No. : [id number] Patient Name / ID : NANDA Lockwood / [id number] Exam Date : 01/03/2018 16:49:22 ( Approved ) Study Comment : Sex / Age : M / 82Y Creator : Estelle Menendez MD Dictator : Estelle Menendez MD Customer Engineer : Laboratory Director : Estelle Menendez MD Approver2 : Report Date : 01/03/2018 17:44:07 My Comment : Date of service: 01/03/2018 PROCEDURE: Left Knee Radiographs. HISTORY: Pain. COMPARISON: None. FINDINGS: BONES: There is no acute displaced fracture or bone destruction. Bone alignment is normal. There is severe diffuse bone demineralization. JOINTS: There is severe tricompartmental degenerative osteoarthrosis with reduced joint spaces, marginal osteophytes and tibial spiking, worse in the the lateral compartment. JOINT EFFUSION: None. OTHER FINDINGS: There are advanced atherosclerotic vascular calcifications. IMPRESSION: Severe tricompartmental degenerative osteoarthrosis, worse in the lateral compartment. Accession No. : [id number] Patient Name / ID : NANDA Lockwood / [id number] Exam Date : 01/03/2018 19:59:41 ( Approved ) Study Comment : Sex / Age : M / 82Y Creator : Jeremias Chan MD Dictator : Jeremias Chan MD Customer Engineer : Laboratory Director : Jeremias Chan MD Approver2 : Report Date : 01/04/2018 09:00:54 My Comment : Date of service: 01/03/2018 PROCEDURE: HISTORY: persist Left knee pain COMPARISON: TECHNIQUE: FINDINGS: No evidence of fracture dislocation. Osteopenia. Focal cystic lesion with cortical disruption in the lateral aspect of the patella measuring 2.1 x 1.7 centimeters. No evidence of soft tissue mass. Cystic degenerative changes in the tibial plateau. Severe tricompartmental joint space narrowing with marginal spur formation. IMPRESSION: No effusion. No acute fracture. Degenerative changes. Focal cystic lesion in the patella. Assessment & Plan (1) Osteoarthritis of left knee Assessment and Plan: -Dr. Day recommends surgical intervention with L TKA -above complicated by medical/cardiac clearance, need to be off anticoags for 5- 7 days, current LLE ulceration. -Not able to plan for above procedure until all above resolved -pain control and PT/OT WBAT for now -above d/w Dr. Day in agreement Status: Acute - Date & Time Date: 01/04/18 Time: 07:30
[2018-01-04] MEDS: Lidocaine 5% Patch TD SCH (12:22)
[2018-01-04] MEDS: Metoprolol Succinate 25 mg XL Tab PO SCH (12:40)
[2018-01-05] MEDS: Lidocaine 5% Patch TD SCH (09:55)
[2018-01-05] MEDS: Metoprolol Succinate 25 mg XL Tab PO SCH (09:57)
[2018-01-05] MEDS: Pantoprazole 40 mg EC Tab PO SCH (09:57)
--- NOTE | 2018-01-05 09:58 | CP.PCM.PN ---
Subjective - Date & Time of Evaluation Date of Evaluation: 01/05/18 Time of Evaluation: 09:51 - Subjective Subjective: Patient states that he has a lot of knee pain. He has been following with Dr. Butcher for his left medial ankle wound, and it is much smaller than it previously was. He had appointment to see her, but didn't make it because he was hospitalized. Denies numbness/tingling/CP/SOB/dizziness. Objective - Vital Signs/Intake and Output Vital Signs (last 24 hours): Temp Pulse Resp BP Pulse Ox 97.5 F L 80 19 128/77 98 01/05/18 08:02 01/05/18 08:02 01/05/18 08:02 01/05/18 08:02 01/05/18 08:02 - Medications Medications: Current Medications Acetaminophen (Tylenol 325mg Tab) 650 mg PO Q6 PRN PRN Reason: Pain, severe (8-10) Last Admin: 01/04/18 21:23 Dose: 650 mg Atorvastatin Calcium (Lipitor) 10 mg PO DAILY [facility] Last Admin: 01/04/18 10:00 Dose: 10 mg Clopidogrel Bisulfate (Plavix) 75 mg PO DAILY [facility] Last Admin: 01/04/18 10:00 Dose: 75 mg Fluoxetine HCl (Prozac) 20 mg PO DAILY [facility] Last Admin: 01/04/18 12:21 Dose: 20 mg Furosemide (Lasix) 40 mg PO DAILY [facility] Last Admin: 01/04/18 10:00 Dose: 40 mg Heparin Sodium (Porcine) (Heparin) 5,000 units SC Q8 [facility]; Protocol Last Admin: 01/05/18 00:34 Dose: 5,000 units Ibuprofen (Motrin Tab) 600 mg PO Q8 PRN PRN Reason: Pain, moderate (4-7) Last Admin: 01/05/18 00:33 Dose: 600 mg Lidocaine (Lidoderm) 1 ea TD DAILY [facility] Last Admin: 01/04/18 12:22 Dose: 1 ea Losartan Potassium (Cozaar) 25 mg PO DAILY [facility] Last Admin: 01/04/18 12:21 Dose: 25 mg Metoprolol Succinate (Toprol Xl) 75 mg PO DAILY [facility] Last Admin: 01/04/18 12:40 Dose: 75 mg Pantoprazole Sodium (Protonix Ec Tab) 40 mg PO DAILY [facility] Last Admin: 01/04/18 10:00 Dose: 40 mg Rivaroxaban (Xarelto) 10 mg PO QD5 [facility]; Protocol Last Admin: 01/04/18 16:33 Dose: Not Given - Extremities Exam Additional comments: LLE: +ROM ankle/toes, [id number] wound posterior to left medial malleolus, dependent rubor vs erythema. noted fibrinous exudate. Sitting in chair with knee flexed to 90 degrees without pain. Calves soft NT neg homans. Assessment and Plan (1) Osteoarthritis of left knee Assessment & Plan: indicated for TKR patient with improving ulcer to left medial ankle, but be resolved prior to any elective joint replacement patient to follow up as outpatient after wound resolved cont PT/OT for ambulation training d/c planning to [place] d/w Dr. Day, agrees with above Status: Acute
--- NOTE | 2018-01-05 10:49 | CP.PCM.CON ---
History of Present Illness - History of Present Illness History of Present Illness: Consultation for preoperative cardiovascular risk stratification HPI: 82 year old male with hx of s/p TAVR in 10/12, cardiomyopathy s/p AICD in 08/15, afib on OAC presenting with c/o worsening knee pain and being planned for possible TKA. At baseline severely limited activity 2' to chronic ulcer. PMD: Dr. 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 Pan Past Medical History: HTN; Afib; PVD; left heel ulcer (6 months); mandibular cyst Past Surgical History: TAVR - aortic valve replacement 09/2014; Pacemaker 09/2014 - last interrogated was last week; 2 veins removed in his left lower extremity (04/2017 and 2014) Medications: Plavix 75mg dialy; Valsartan 40mg daily; Crestor 5mg daily; Xarelta 10mg dialy; protonix 40mg daily; metoprolol tartrate 25mg daily; Lasix 40mg dialy; Fluoxetine 20mg daily Allergies: Penicillin - swelling Family History: Dad - heart disease; at 49yo due to coronary thrombosis; Mom - heart disease; paternal uncle - heart disease Social History: quit smoking 30 years ago; previously smoked for 20 years about 1ppd; drinks 1 beer on a Tuesday; denies illicit drug use; lives home 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; 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 working in 2014 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 [employer] Review of Systems - Review of Systems Systems not reviewed;Unavailable: Acuity of Condition - Constitutional Constitutional: As Per HPI - EENT Eyes: As Per HPI Ears: As Per HPI Nose/Mouth/Throat: As Per HPI - Cardiovascular Cardiovascular: As Per HPI - Respiratory Respiratory: As Per HPI - Gastrointestinal Gastrointestinal: As Per HPI - Genitourinary Genitourinary: As Per HPI - Reproductive: Male Reproductive:Male: As Per HPI - Musculoskeletal Musculoskeletal: As Per HPI - Integumentary Integumentary: As Per HPI - Neurological Neurological: As Per HPI - Psychiatric Psychiatric: As Per HPI - Endocrine Endocrine: As Per HPI - Hematologic/Lymphatic Hematologic: As Per HPI Past Patient History - Infectious Disease Hx of Infectious Diseases: None - Past Medical History & Family History Past Medical History?: Yes Past Family History: Reviewed and not pertinent - Past Social History Smoking Status: Never Smoked Alcohol: None Drugs: Denies - CARDIAC Hx Cardiac Disorders: Yes Hx Atrial Fibrillation: Yes Hx Congestive Heart Failure: Yes Hx Hypertension: Yes - PULMONARY Hx Respiratory Disorders: Yes Hx Bronchitis: Yes - NEUROLOGICAL Hx Neurological Disorder: No Hx Paralysis: No - HEENT Hx HEENT Problems: Yes Hx Blind: Yes - ENDOCRINE/METABOLIC Hx Endocrine Disorders: No - HEMATOLOGICAL/ONCOLOGICAL Hx AIDS: No Hx Hepatitis C: No Hx Human Immunodeficiency Virus (HIV): No - INTEGUMENTARY Hx Dermatological Problems: No Hx Basil Cell: No Hx Lucas: No Hx Cellulitis: No Hx Eczema: No Hx Melanoma: No Hx Psoriasis: No Hx Squamous Cell: No - MUSCULOSKELETAL/RHEUMATOLOGICAL Hx Musculoskeletal Disorders: Yes Hx Falls: Yes - GASTROINTESTINAL Hx Gastrointestinal Disorders: No - GENITOURINARY/GYNECOLOGICAL Hx Genitourinary Disorders: No - PSYCHIATRIC Hx Substance Use: No - SURGICAL HISTORY Hx Surgeries: Yes Other/Comment: pacemaker, valve replacement 2014 - ANESTHESIA Hx Anesthesia: Yes Hx Anesthesia Reactions: No Hx Malignant Hyperthermia: No Meds Allergies/Adverse Reactions: Allergies Allergy/AdvReac Type Severity Reaction Status Date / Time penicillin V Allergy Severe RASH/HIVES Verified 01/03/18 15:18 - Medications Medications: Current Medications Acetaminophen (Tylenol 325mg Tab) 650 mg PO Q6 PRN PRN Reason: Pain, severe (8-10) Last Admin: 01/04/18 21:23 Dose: 650 mg Atorvastatin Calcium (Lipitor) 10 mg PO DAILY [facility] Last Admin: 01/05/18 09:56 Dose: 10 mg Clopidogrel Bisulfate (Plavix) 75 mg PO DAILY [facility] Last Admin: 01/04/18 10:00 Dose: 75 mg Fluoxetine HCl (Prozac) 20 mg PO DAILY [facility] Last Admin: 01/05/18 09:57 Dose: 20 mg Furosemide (Lasix) 40 mg PO DAILY [facility] Last Admin: 01/05/18 09:54 Dose: 40 mg Heparin Sodium (Porcine) (Heparin) 5,000 units SC Q8 [facility]; Protocol Last Admin: 01/05/18 09:54 Dose: 5,000 units Ibuprofen (Motrin Tab) 600 mg PO Q8 PRN PRN Reason: Pain, moderate (4-7) Last Admin: 01/05/18 00:33 Dose: 600 mg Lidocaine (Lidoderm) 1 ea TD DAILY [facility] Last Admin: 01/05/18 09:55 Dose: 1 ea Losartan Potassium (Cozaar) 25 mg PO DAILY [facility] Last Admin: 01/05/18 09:53 Dose: 25 mg Metoprolol Succinate (Toprol Xl) 75 mg PO DAILY [facility] Last Admin: 01/05/18 09:57 Dose: 75 mg Pantoprazole Sodium (Protonix Ec Tab) 40 mg PO DAILY [facility] Last Admin: 01/05/18 09:57 Dose: 40 mg Rivaroxaban (Xarelto) 10 mg PO QD5 [facility]; Protocol Last Admin: 01/04/18 16:33 Dose: Not Given Physical Exam - Constitutional Appears: Well - Head Exam Head Exam: ATRAUMATIC, NORMAL INSPECTION, NORMOCEPHALIC - Eye Exam Eye Exam: EOMI, Normal appearance, PERRL Pupil Exam: NORMAL ACCOMODATION, PERRL - ENT Exam ENT Exam: Mucous Membranes Moist, Normal Exam - Neck Exam Neck exam: Positive for: Normal Inspection - Respiratory Exam Respiratory Exam: Clear to Auscultation Bilateral, NORMAL BREATHING PATTERN - Cardiovascular Exam Cardiovascular Exam: REGULAR RHYTHM, +S1, +S2, Systolic Murmur - GI/Abdominal Exam GI & Abdominal Exam: Normal Bowel Sounds, Soft. absent: Tenderness - Extremities Exam Extremities exam: Positive for: normal inspection - Back Exam Back exam: NORMAL INSPECTION - Neurological Exam Neurological exam: Alert, CN II-XII Intact, Normal Gait, Oriented x3, Reflexes Normal - Psychiatric Exam Psychiatric exam: Normal Affect, Normal Mood - Skin Skin Exam: Dry, Intact, Normal Color, Warm Results - Vital Signs Recent Vital Signs: Last Vital Signs Temp 97.5 F L 01/05/18 08:02 Pulse 80 01/05/18 09:57 Resp 19 01/05/18 08:02 BP 128/77 01/05/18 09:57 Pulse Ox 98 01/05/18 08:02 Assessment & Plan (1) Preop cardiovascular exam Status: Acute (2) Knee pain Status: Acute (3) Osteoarthritis of left knee Status: Acute (4) Chronic congestive heart failure Status: Acute (5) Aortic stenosis Status: Chronic (6) Chronic a-fib Status: Chronic (7) Chronic foot ulcer Status: Chronic (8) HTN (hypertension) Status: Chronic
[2018-01-05] MEDS ORDERED: Sodium Chloride 0.9% 50 ML IV ONE (16:03)
[2018-01-05] MEDS ORDERED: Iodixanol 320 MG/ML 100 ML BOTTLE IV ONE (16:03)
[2018-01-06 06:34] LABS: HEMOGLOBIN 15.9 g/dL (12.0-18.0); MEAN CELL VOLUME 95.7 fl (80.0-94.0); MEAN CORPUSCULAR HEMOGLOBIN 31.5 pg (27.0-31.0); MEAN CORPUSCULAR HGB CONC 32.9 g/dL (33.0-37.0); RBC 5.06 Mil/uL (4.40-5.90); RED CELL DISTRIBUTION WIDTH 15.5 % (11.5-14.5); WHITE BLOOD COUNT 4.7 K/uL (4.8-10.8)
[2018-01-06 06:56] LABS: ALB/GLOB RATIO 1.1 (1.0-2.1); ALBUMIN 4.4 g/dL (3.5-5.0); ALT/SGPT 28 U/L (21-72); AST/SGOT 34 U/L (17-59); BLOOD UREA NITROGEN 26 mg/dl (9-20); CALCIUM 9.8 mg/dL (8.4-10.2); GFR NON-AFRICAN AMERICAN > 60
[2018-01-06] MEDS ORDERED: Ergocalciferol 50,000 Intl Units Cap PO SCH (10:15)
[2018-01-06] MEDS: Lidocaine 5% Patch TD SCH (10:35)
[2018-01-06] MEDS: Pantoprazole 40 mg EC Tab PO SCH (10:36)
[2018-01-06] MEDS: Metoprolol Succinate 25 mg XL Tab PO SCH (10:36)
--- NOTE | 2018-01-06 12:03 | PN ---
DATE: 01/06/2018 SUBJECTIVE: The patient seen and examined. Interim events noted. Orthopedic and Cardiology consults noted and appreciated. Case discussed with Orthopedics. The patient does need total knee replacement when it is cleared by consultants. The patient feels okay. Denies any chest pain or shortness of breath. PHYSICAL EXAMINATION: GENERAL: The patient is in no acute distress. VITAL SIGNS: Stable. HEART: S1, S2, normal and regular. LUNGS: Good bilateral air exchange. ABDOMEN: Soft and nontender. EXTREMITIES: The patient has chronic arthritis. Also has left medial foot ulceration. No clear sign of infection around the ulceration. CENTRAL NERVOUS SYSTEM: Essentially unchanged. DIAGNOSTIC DATA: Available diagnostic data reviewed. ASSESSMENT AND PLAN: Overall, the patient's general medical condition is stable. The patient needs total knee replacement. Plan as ordered. Dmitry Chirinos MD
--- NOTE | 2018-01-06 12:42 | CP.PCM.PN ---
Subjective - Date & Time of Evaluation Date of Evaluation: 01/06/18 Time of Evaluation: 12:41 - Subjective Subjective: Patient complaining of knee pain. No new complaints. Needs assistance to get to commode. Objective - Vital Signs/Intake and Output Vital Signs (last 24 hours): Temp Pulse Resp BP Pulse Ox 97.5 F L 81 19 130/86 99 01/06/18 08:03 01/06/18 10:36 01/06/18 08:03 01/06/18 10:36 01/06/18 08:03 - Medications Medications: Current Medications Acetaminophen (Tylenol 325mg Tab) 650 mg PO Q6 PRN PRN Reason: Pain, severe (8-10) Last Admin: 01/04/18 21:23 Dose: 650 mg Atorvastatin Calcium (Lipitor) 10 mg PO DAILY [facility] Last Admin: 01/06/18 10:36 Dose: 10 mg Cholecalciferol (Vitamin D) 2,000 intlu PO DAILY [facility] Clopidogrel Bisulfate (Plavix) 75 mg PO DAILY [facility] Last Admin: 01/04/18 10:00 Dose: 75 mg Ergocalciferol (Drisdol 50,000 Intl Units Cap) 1 cap PO Q7D [facility] Last Admin: 01/06/18 10:40 Dose: 1 cap Fluoxetine HCl (Prozac) 20 mg PO DAILY [facility] Last Admin: 01/06/18 10:36 Dose: 20 mg Furosemide (Lasix) 40 mg PO DAILY [facility] Last Admin: 01/06/18 10:34 Dose: 40 mg Heparin Sodium (Porcine) (Heparin) 5,000 units SC Q8 [facility]; Protocol Last Admin: 01/06/18 10:34 Dose: 5,000 units Ibuprofen (Motrin Tab) 600 mg PO Q8 PRN PRN Reason: Pain, moderate (4-7) Last Admin: 01/05/18 21:14 Dose: 600 mg Lidocaine (Lidoderm) 1 ea TD DAILY [facility] Last Admin: 01/06/18 10:35 Dose: 1 ea Losartan Potassium (Cozaar) 25 mg PO DAILY [facility] Last Admin: 01/06/18 10:33 Dose: 25 mg Metoprolol Succinate (Toprol Xl) 75 mg PO DAILY [facility] Last Admin: 01/06/18 10:36 Dose: 75 mg Pantoprazole Sodium (Protonix Ec Tab) 40 mg PO DAILY [facility] Last Admin: 01/06/18 10:36 Dose: 40 mg Rivaroxaban (Xarelto) 10 mg PO QD5 [facility]; Protocol Last Admin: 01/04/18 16:33 Dose: Not Given - Labs Labs: 01/06/18 05:40 01/06/18 05:40 - Extremities Exam Additional comments: LLE: +ROM ankle/toes, [id number] wound posterior to left medial malleolus, dependent rubor vs erythema. noted fibrinous exudate. No change. Sitting in chair with knee flexed to 90 degrees without pain. Calves soft NT neg homans. Assessment and Plan (1) Osteoarthritis of left knee Assessment & Plan: indicated for TKR patient with improving ulcer to left medial ankle, but be resolved prior to any elective joint replacement patient to follow up as outpatient after wound resolved, f/u with Dr. Butcher as scheduled cont PT/OT for ambulation training d/c planning to [facility] d/w Dr. Day, agrees with above Status: Acute
--- NOTE | 2018-01-06 14:09 | CP.PCM.PCO ---
Assessment & Plan - Assessment and Plan (Free Text) Assessment: Preliminary report for CT Angiogram of LE with : Diffuse atherosclerotic changes in the L SFA with evidence of high grade stenosis distally estimated at greater than 70% but no occlusion. notified, pt. will likely need peripheral angiogram as per .Campos Will cont to hold Xarelto and resume plavix since TKR Sx is on hold pending cardiac / vascular clearance
--- NOTE | 2018-01-06 15:40 | CT ---
Date of service: 01/05/2018 PROCEDURE: CTA of the abdomen pelvis and lower extremities with contrast HISTORY: LE arterial ulcer COMPARISON: Comparison is made to the previous study dated 09/26/2012 TECHNIQUE: Axial coronal and sagittal CTA images of the lower abdomen pelvis and lower extremities were obtained after IV contrast administration. FINDINGS: CTA of the abdomen and pelvis: There is [id number] diffuse atherosclerotic disease in the abdominal aorta. The celiac trunk is patent demonstrate moderate atherosclerotic disease and mural calcification and thickening. The renal arteries are patent also contains foci of mural thickening and calcification. No evidence of aneurysm or dissection. There is mild less than 50 percent stenosis at the proximal left common iliac artery. Foci of mural thickening and calcification are also noted in both common internal and external iliac arteries. No evidence of the dissection or aneurysm. Gallstones are noted without evidence of acute cholecystitis. The kidneys enhance symmetrically. No evidence of acute pathology in the abdomen and pelvis. Large hiatus hernia is noted. CTA of the right lower extremity. The right common femoral artery is patent demonstrate moderate atherosclerotic disease. The right femoral profound the is also patent demonstrate diffuse calcification and atherosclerotic disease. There are multiple foci of moderate stenosis in the right superficial femoral artery more prominent distally. There is occlusion of the right popliteal artery from its origin. No blood flow or contrast opacification noted in the right popliteal artery. No contrast seen in the right anterior tibialis posterior tibialis or peroneal arteries. CTA of the left lower extremity: The left common femoral and femoral profound the are patent. There is moderate diffuse disease in the left superficial femoral artery. There is a focal moderate approximately 75 percent stenosis at the distal left superficial femoral artery. The left popliteal artery is patent at the proximal and midportion demonstrate diffuse atherosclerotic disease. There is a focal moderate to severe stenosis at the distal portion of the left popliteal artery with approximately 85 percent stenosis. The left anterior tibial artery is occluded shortly after its origin. The left tibial peroneal trunk is patent. There is occlusion of the left posterior tibial artery from its origin. There is occlusion of the distal and mid left peroneal artery. Diffuse soft tissue edema noted at the left leg and left foot. IMPRESSION: Moderate to mildly severe diffuse atherosclerotic disease as discussed above. Occlusion of the right popliteal artery and the right leg arteries below the knee. Severe disease in the left popliteal artery. Occlusion of the left anterior and posterior tibials arteries. Additional findings as described above.
[2018-01-07] MEDS: Lidocaine 5% Patch TD SCH (08:43)
[2018-01-07] MEDS: Multivitamin With Minerals Tab PO SCH (08:53)
[2018-01-07] MEDS: Pantoprazole 40 mg EC Tab PO SCH (08:53)
[2018-01-07] MEDS: Cholecalciferol 1,000 INTLU TAB PO SCH (08:54)
[2018-01-07] MEDS: Metoprolol Succinate 25 mg XL Tab PO SCH (08:54)
[2018-01-07 10:05] LABS: HEMOGLOBIN 15.9 g/dL (12.0-18.0); MEAN CELL VOLUME 96.9 fl (80.0-94.0); MEAN CORPUSCULAR HEMOGLOBIN 31.2 pg (27.0-31.0); MEAN CORPUSCULAR HGB CONC 32.2 g/dL (33.0-37.0); RBC 5.09 Mil/uL (4.40-5.90); RED CELL DISTRIBUTION WIDTH 15.8 % (11.5-14.5); WHITE BLOOD COUNT 4.3 K/uL (4.8-10.8)
[2018-01-07 10:26] LABS: PROTHROMBIN TIME 11.6 Seconds (9.8-13.1)
[2018-01-07 10:28] LABS: PARTIAL THROMBOPLASTIN TIME 39.6 Seconds (25.6-37.1)
[2018-01-07 10:45] LABS: BLOOD UREA NITROGEN 20 mg/dl (9-20); GFR NON-AFRICAN AMERICAN > 60
--- NOTE | 2018-01-07 14:01 | PN ---
DATE: 01/07/2018 SUBJECTIVE: The patient seen and examined. Interim events noted. Orthopedic followup and interventions noted and appreciated. The patient remains in regular medical floor. The patient feels okay. Denies any specific complaint. No chest pain. No shortness of breath. Knee pain also improved. Left foot ulcer looks healing. PHYSICAL EXAMINATION: GENERAL: The patient is in no acute distress. VITAL SIGNS: Stable. HEART: S1 and S2, normal and regular. LUNGS: Good bilateral air exchange. ABDOMEN: Soft and nontender. EXTREMITIES: The patient has chronic arthritis and left foot ulcer is healing without any clear sign of infection or cellulitis. No edema. No calf swelling. No tenderness. No acute ischemia. CENTRAL NERVOUS SYSTEM: Essentially unchanged. DIAGNOSTIC DATA: Available diagnostic data reviewed. ASSESSMENT AND PLAN: Overall, the patient is medically stable. Angiogram shows atherosclerotic disease on artery. May need some intervention from cardiology. Plan as ordered. Case and plan discussed with the patient. Dmitry Chirinos MD
[2018-01-08 07:23] LABS: HEMOGLOBIN 16.3 g/dL (12.0-18.0); MEAN CORPUSCULAR HEMOGLOBIN 31.1 pg (27.0-31.0); MEAN CORPUSCULAR HGB CONC 32.8 g/dL (33.0-37.0); RBC 5.23 Mil/uL (4.40-5.90); RED CELL DISTRIBUTION WIDTH 15.8 % (11.5-14.5); WHITE BLOOD COUNT 4.6 K/uL (4.8-10.8)
[2018-01-08 08:03] LABS: ALB/GLOB RATIO 1.1 (1.0-2.1); ALBUMIN 4.4 g/dL (3.5-5.0); ALT/SGPT 33 U/L (21-72); AST/SGOT 33 U/L (17-59); BLOOD UREA NITROGEN 22 mg/dl (9-20); CALCIUM 9.6 mg/dL (8.4-10.2); GFR NON-AFRICAN AMERICAN > 60
[2018-01-08] MEDS: Lidocaine 5% Patch TD SCH (10:38)
[2018-01-08] MEDS: Metoprolol Succinate 25 mg XL Tab PO SCH (10:38)
[2018-01-08] MEDS: Pantoprazole 40 mg EC Tab PO SCH (10:39)
[2018-01-08] MEDS: Cholecalciferol 1,000 INTLU TAB PO SCH ×2 (10:39→14:28)
[2018-01-08] MEDS: Multivitamin With Minerals Tab PO SCH ×2 (14:28→14:29)
[2018-01-09] MEDS: Multivitamin With Minerals Tab PO SCH (08:23)
[2018-01-09] MEDS: Metoprolol Succinate 25 mg XL Tab PO SCH (08:24)
[2018-01-09] MEDS: Cholecalciferol 1,000 INTLU TAB PO SCH (08:24)
[2018-01-09] MEDS: Pantoprazole 40 mg EC Tab PO SCH (08:24)
[2018-01-09] MEDS: Lidocaine 5% Patch TD SCH (08:42)
--- NOTE | 2018-01-09 12:31 | PN ---
DATE: 01/09/2018 SUBJECTIVE: The patient seen and examined. Interim events noted. Consults noted and appreciated. The patient remains in regular medical floor. The patient is awake and responsive. Feels okay. Denies any chest pain, shortness of breath, or new extremity pain. Knee pain is very difficult to control. PHYSICAL EXAMINATION: GENERAL: The patient is in no acute distress. VITAL SIGNS: Stable. HEART: S1 and S1, normal, regular. LUNGS: Good bilateral air exchange. ABDOMEN: Soft, nontender. EXTREMITIES: No edema. No calf swelling. No tenderness. No acute ischemia. The patient has chronic , which is clean. Also has chronic osteoarthritic changes in his joints. DIAGNOSTIC DATA: Available diagnostic data reviewed. ASSESSMENT AND PLAN: Overall, the patient's general medical condition is stable. Plan as ordered. Dmitry Chirinos MD
--- NOTE | 2018-01-09 15:23 | CP.PCM.PN ---
Subjective - Date & Time of Evaluation Date of Evaluation: 01/09/18 Time of Evaluation: 15:24 - Subjective Subjective: Patient says left knee pain is better. Improving with PT Objective - Vital Signs/Intake and Output Vital Signs (last 24 hours): Temp Pulse Resp BP Pulse Ox 97.4 F L 81 20 112/72 98 01/09/18 09:16 01/09/18 09:16 01/09/18 09:16 01/09/18 09:16 01/09/18 09:16 - Medications Medications: Current Medications Acetaminophen (Tylenol 325mg Tab) 650 mg PO Q6 PRN PRN Reason: Pain, severe (8-10) Last Admin: 01/09/18 00:52 Dose: 650 mg Atorvastatin Calcium (Lipitor) 10 mg PO DAILY [facility] Last Admin: 01/09/18 08:24 Dose: 10 mg Cholecalciferol (Vitamin D) 2,000 intlu PO DAILY [facility] Last Admin: 01/09/18 08:24 Dose: 2,000 intlu Clopidogrel Bisulfate (Plavix) 75 mg PO DAILY [facility] Last Admin: 01/09/18 08:23 Dose: 75 mg Ergocalciferol (Drisdol 50,000 Intl Units Cap) 1 cap PO Q7D [facility] Last Admin: 01/06/18 10:40 Dose: 1 cap Fluoxetine HCl (Prozac) 20 mg PO DAILY [facility] Last Admin: 01/09/18 08:24 Dose: 20 mg Furosemide (Lasix) 40 mg PO DAILY [facility] Last Admin: 01/09/18 08:41 Dose: 40 mg Heparin Sodium (Porcine) (Heparin) 5,000 units SC Q8 [facility]; Protocol Last Admin: 01/09/18 08:42 Dose: 5,000 units Ibuprofen (Motrin Tab) 600 mg PO Q8 PRN PRN Reason: Pain, moderate (4-7) Last Admin: 01/05/18 21:14 Dose: 600 mg Lidocaine (Lidoderm) 1 ea TD DAILY [facility] Last Admin: 01/09/18 08:42 Dose: 1 ea Losartan Potassium (Cozaar) 25 mg PO DAILY [facility] Last Admin: 01/09/18 08:41 Dose: 25 mg Metoprolol Succinate (Toprol Xl) 75 mg PO DAILY [facility] Last Admin: 01/09/18 08:24 Dose: 75 mg Multivitamins/Minerals (Therapeutic-M Tab) 1 tab PO DAILY [facility] Last Admin: 01/09/18 08:23 Dose: 1 tab Pantoprazole Sodium (Protonix Ec Tab) 40 mg PO DAILY [facility] Last Admin: 01/09/18 08:24 Dose: 40 mg Rivaroxaban (Xarelto) 10 mg PO QD5 [facility]; Protocol Last Admin: 01/04/18 16:33 Dose: Not Given - Labs Labs: 01/08/18 05:30 01/08/18 05:30 PT 11.6 Seconds (9.8-13.1) 01/07/18 08:50 INR 1.0 01/07/18 08:50 APTT 39.6 Seconds (25.6-37.1) H 01/07/18 08:50 - Extremities Exam Additional comments: LLE: +ROM ankle/toes, [id number] wound posterior to left medial malleolus, dependent rubor vs erythema. noted fibrinous exudate. No change. Good pain free ROM left knee. Calves soft NT ng homans Assessment and Plan (1) Osteoarthritis of left knee Assessment & Plan: Patient indicated for TKR patient with left medial ankle ulcer, improving (per patient was much bigger) being followed by Dr. Butcher as outpt CT angio appreciated, significant BLE disease, would need vascular evaluation and clearance before any elective orthopedic surgery cont PT/OT for ambulation training d/w Dr. Day, agrees with above Status: Acute (2) Vitamin D deficiency Assessment & Plan: supplemented Status: Acute Radiology Interpretation - Radiology Interpretation #2 Interpretation: Patient Name / ID : NANDA SOTO F / [id number] Exam Date : 01/05/2018 16:04:30 ( Approved ) Study Comment : Sex / Age : M / [id number] Creator : Radha Dumont MD Dictator : Radha Dumont MD Crate Builder : Roll Hand : Radha Dumont MD Approver2 : Report Date : 01/06/2018 15:34:54 My Comment : Date of service: 01/05/2018 PROCEDURE: CTA of the abdomen pelvis and lower extremities with contrast HISTORY: LE arterial ulcer COMPARISON: Comparison is made to the previous study dated 09/26/2012 TECHNIQUE: Axial coronal and sagittal CTA images of the lower abdomen pelvis and lower extremities were obtained after IV contrast administration. FINDINGS: CTA of the abdomen and pelvis: There is [id number] diffuse atherosclerotic disease in the abdominal aorta. The celiac trunk is patent demonstrate moderate atherosclerotic disease and mural calcification and thickening. The renal arteries are patent also contains foci of mural thickening and calcification. No evidence of aneurysm or dissection. There is mild less than 50 percent stenosis at the proximal left common iliac artery. Foci of mural thickening and calcification are also noted in both common internal and external iliac arteries. No evidence of the dissection or aneurysm. Gallstones are noted without evidence of acute cholecystitis. The kidneys enhance symmetrically. No evidence of acute pathology in the abdomen and pelvis. Large hiatus hernia is noted. CTA of the right lower extremity. The right common femoral artery is patent demonstrate moderate atherosclerotic disease. The right femoral profound the is also patent demonstrate diffuse calcification and atherosclerotic disease. There are multiple foci of moderate stenosis in the right superficial femoral artery more prominent distally. There is occlusion of the right popliteal artery from its origin. No blood flow or contrast opacification noted in the right popliteal artery. No contrast seen in the right anterior tibialis posterior tibialis or peroneal arteries. CTA of the left lower extremity: The left common femoral and femoral profound the are patent. There is moderate diffuse disease in the left superficial femoral artery. There is a focal moderate approximately 75 percent stenosis at the distal left superficial femoral artery. The left popliteal artery is patent at the proximal and midportion demonstrate diffuse atherosclerotic disease. There is a focal moderate to severe stenosis at the distal portion of the left popliteal artery with approximately 85 percent stenosis. The left anterior tibial artery is occluded shortly after its origin. The left tibial peroneal trunk is patent. There is occlusion of the left posterior tibial artery from its origin. There is occlusion of the distal and mid left peroneal artery. Diffuse soft tissue edema noted at the left leg and left foot. IMPRESSION: Moderate to mildly severe diffuse atherosclerotic disease as discussed above. Occlusion of the right popliteal artery and the right leg arteries below the knee. Severe disease in the left popliteal artery. Occlusion of the left anterior and posterior tibials arteries. Additional findings as described above.
--- NOTE | 2018-01-10 09:18 | PN ---
DATE: 01/08/2018 SUBJECTIVE: The patient seen and examined. Interim events noted. Consults noted and appreciated. The patient remains in regular medical floor. The patient is awake, responsive . The patient is . PHYSICAL EXAMINATION: GENERAL: ABDOMEN: Soft, nontender. EXTREMITIES: No edema. No calf swelling. No tenderness. No acute ischemia. CENTRAL NERVOUS SYSTEM: Essentially unchanged. Dmitry Chirinos MD (Delete this signature block when dictator is a preceptor.) cc: MD Dede (Delete if not dictated.)
[2018-01-10] MEDS: Metoprolol Succinate 25 mg XL Tab PO SCH ×2 (09:48→20:58)
[2018-01-10] MEDS: Lidocaine 5% Patch TD SCH ×2 (09:48→21:06)
[2018-01-10] MEDS: Multivitamin With Minerals Tab PO SCH ×2 (09:48→20:57)
[2018-01-10] MEDS: Pantoprazole 40 mg EC Tab PO SCH ×2 (09:48→20:59)
[2018-01-10] MEDS: Cholecalciferol 1,000 INTLU TAB PO SCH (09:49)
--- NOTE | 2018-01-10 12:58 | PN ---
DATE: 01/10/2018 SUBJECTIVE: The patient seen and examined. Interim events noted. Consults noted and appreciated. The patient remains in regular medical floor. The patient is awake, responsive, feels okay. Pain is adequately controlled. No new complaints. No chest pain. No shortness of breath. PHYSICAL EXAMINATION: GENERAL: The patient is in no acute distress. VITAL SIGNS: Stable. HEART: S1 and S2, normal and regular. LUNGS: Good bilateral air exchange. ABDOMEN: Soft, nontender. EXTREMITIES: The patient has chronic arthritis. The patient also has left medial heel ulcer, which is slowly healing. No sign of acute distal neurovascular compromise. CENTRAL NERVOUS SYSTEM: Exam is essentially unchanged. DIAGNOSTIC DATA: Available diagnostic data reviewed. The patient is for angiogram today. ASSESSMENT AND PLAN: Plan as ordered. Case and plan discussed with patient. Dmitry Chirinos MD
[2018-01-11 08:52] VITALS: RESP 20
[2018-01-11] MEDS: Pantoprazole 40 mg EC Tab PO SCH (09:17)
[2018-01-11] MEDS: Lidocaine 5% Patch TD SCH ×2 (09:17→09:21)
[2018-01-11] MEDS: Cholecalciferol 1,000 INTLU TAB PO SCH (09:18)
[2018-01-11] MEDS: Metoprolol Succinate 25 mg XL Tab PO SCH (09:18)
[2018-01-11] MEDS: Multivitamin With Minerals Tab PO SCH (09:18)
[2018-01-11 09:21] LABS: BASO # 0.1 K/uL (0.0-0.2); BASO % 1.2 % (0.0-2.0); EOS # 0.2 K/uL (0.0-0.7); EOS % 3.5 % (0.0-4.0); HEMOGLOBIN 15.3 g/dL (12.0-18.0); LYMPH # 0.5 K/uL (1.0-4.3); LYMPH % 10.5 % (20.0-40.0); MEAN CELL VOLUME 96.2 fl (80.0-94.0); MEAN CORPUSCULAR HEMOGLOBIN 30.8 pg (27.0-31.0); MEAN PLATELET VOLUME 8.2 fl (7.2-11.7); MONO # 0.6 K/uL (0.0-0.8); MONO % 12.2 % (0.0-10.0); NEUT # 3.7 K/uL (1.8-7.0); NEUT % 72.6 % (50.0-75.0); NRBC % 0.1 % (0.0-0.0); RBC 4.97 Mil/uL (4.40-5.90); RED CELL DISTRIBUTION WIDTH 16.1 % (11.5-14.5); WHITE BLOOD COUNT 5.1 K/uL (4.8-10.8)
[2018-01-11 09:33] LABS: PROTHROMBIN TIME 11.8 Seconds (9.8-13.1)
[2018-01-11 09:37] LABS: PARTIAL THROMBOPLASTIN TIME 32.9 Seconds (25.6-37.1)
[2018-01-11 10:02] LABS: ALB/GLOB RATIO 1.2 (1.0-2.1); ALBUMIN 4.3 g/dL (3.5-5.0); ALT/SGPT 31 U/L (21-72); AST/SGOT 33 U/L (17-59); BLOOD UREA NITROGEN 17 mg/dl (9-20); CALCIUM 9.6 mg/dL (8.4-10.2); GFR NON-AFRICAN AMERICAN > 60
--- NOTE | 2018-01-11 10:15 | PN ---
DATE: 01/11/2018 SUBJECTIVE: The patient seen and examined. Interim events noted. The patient remains in regular medical floor. Feels okay. Pain is adequately controlled. No chest pain or shortness of breath. The patient has angiogram done yesterday. No new complaints. PHYSICAL EXAMINATION: GENERAL: The patient is in no acute distress. VITAL SIGNS: Stable. HEART: S1, S2, normal, regular. LUNGS: Good bilateral air exchange. ABDOMEN: Soft, nontender. EXTREMITIES: No edema. No calf swelling. No tenderness. No acute ischemia. The patient has left heel ulcer which is clean and healing, also has signs of chronic arthritis in joints. ASSESSMENT AND PLAN: The patient is medically stable. Plan as ordered. Dmitry Chirinos MD Job # [id number]
--- NOTE | 2018-01-11 13:33 | CP.PCM.PN ---
Subjective - Date & Time of Evaluation Date of Evaluation: 01/11/18 Time of Evaluation: 13:33 - Subjective Subjective: Patient states left knee is feeling better. No new complaints. Patient was at [facility] yesterday for peripheral angiogram. Results noted, severe disease. Objective - Vital Signs/Intake and Output Vital Signs (last 24 hours): Temp Pulse Resp BP Pulse Ox 97.4 F L 80 20 115/75 99 01/11/18 08:51 01/11/18 09:18 01/11/18 08:51 01/11/18 09:18 01/11/18 08:51 - Medications Medications: Current Medications Acetaminophen (Tylenol 325mg Tab) 650 mg PO Q6 PRN PRN Reason: Pain, severe (8-10) Last Admin: 01/11/18 01:09 Dose: 650 mg Atorvastatin Calcium (Lipitor) 10 mg PO DAILY [facility] Last Admin: 01/11/18 09:17 Dose: 10 mg Cholecalciferol (Vitamin D) 2,000 intlu PO DAILY [facility] Last Admin: 01/11/18 09:18 Dose: 2,000 intlu Clopidogrel Bisulfate (Plavix) 75 mg PO DAILY [facility] Last Admin: 01/11/18 09:17 Dose: 75 mg Ergocalciferol (Drisdol 50,000 Intl Units Cap) 1 cap PO Q7D [facility] Last Admin: 01/06/18 10:40 Dose: 1 cap Fluoxetine HCl (Prozac) 20 mg PO DAILY [facility] Last Admin: 01/11/18 09:18 Dose: 20 mg Furosemide (Lasix) 40 mg PO DAILY [facility] Last Admin: 01/11/18 09:17 Dose: 40 mg Ibuprofen (Motrin Tab) 600 mg PO Q8 PRN PRN Reason: Pain, moderate (4-7) Last Admin: 01/05/18 21:14 Dose: 600 mg Lidocaine (Lidoderm) 1 ea TD DAILY [facility] Last Admin: 01/11/18 09:21 Dose: Not Given Losartan Potassium (Cozaar) 25 mg PO DAILY [facility] Last Admin: 01/11/18 09:16 Dose: 25 mg Metoprolol Succinate (Toprol Xl) 75 mg PO DAILY [facility] Last Admin: 01/11/18 09:18 Dose: 75 mg Multivitamins/Minerals (Therapeutic-M Tab) 1 tab PO DAILY [facility] Last Admin: 01/11/18 09:18 Dose: 1 tab Pantoprazole Sodium (Protonix Ec Tab) 40 mg PO DAILY [facility] Last Admin: 01/11/18 09:17 Dose: 40 mg Rivaroxaban (Xarelto) 10 mg PO QD5 [facility]; Protocol Last Admin: 01/04/18 16:33 Dose: Not Given - Labs Labs: 01/11/18 07:59 01/11/18 07:59 PT 11.8 Seconds (9.8-13.1) 01/11/18 07:59 INR 1.0 01/11/18 07:59 APTT 32.9 Seconds (25.6-37.1) 01/11/18 07:59 - Extremities Exam Additional comments: Patient sleeping in chair, easily awakened. No tenderness to left knee, no effusion, sits with knee flexed to 90 degrees. No tenderness. No erythema, ca lves soft NTneg homans +ROM ankle/toes Assessment and Plan (1) Osteoarthritis of left knee Assessment & Plan: no orthopedic intervention planned at this time patient can follow up as outpatient progressing very well with PT in regards to ambulation patient would need ulcer healed and vascular optimization prior to any consideration for TKR d/w Dr. Day, agrees with above Status: Acute (2) Vitamin D deficiency Assessment & Plan: recommend over 40 prior to elective joint replacement Status: Acute
[2018-01-11 16:24] VITALS: BP 120/71; PULSE 81; TEMP 97.3; O2SAT 96
== END 2018-01-11 21:46 | DRG 300 ==
LOC: H.ER 14:52 → H.ERHOLD 23:12 → H.MEDSURG1 01-04 00:45 → OBSVTOIN 01-05 11:46 → H.MEDSURG1 01-06 21:59
PROVIDERS: ADMIT Internal Medicine; ATTEND Internal Medicine
PROC: B40DYZZ Plain Radiography of Aorta and Bilateral Lower Extremity Arteries using Other Contrast (ICD-10-PCS; principal; 2018-01-10)
DX: I70.213 Atherosclerosis of native arteries of extremities with intermittent claudication, bilateral legs (principal); L97.329 Non-pressure chronic ulcer of left ankle with unspecified severity; L97.429 Non-pressure chronic ulcer of left heel and midfoot with unspecified severity; I70.92 Chronic total occlusion of artery of the extremities; M17.12 Unilateral primary osteoarthritis, left knee; I11.0 Hypertensive heart disease with heart failure; I48.2 Chronic atrial fibrillation; Z79.01 Long term (current) use of anticoagulants; Z95.2 Presence of prosthetic heart valve; E55.9 Vitamin D deficiency, unspecified; E78.5 Hyperlipidemia, unspecified; Z88.0 Allergy status to penicillin; I87.8 Other specified disorders of veins; Z87.891 Personal history of nicotine dependence; I50.9 Heart failure, unspecified; Z79.02 Long term (current) use of antithrombotics/antiplatelets

== ENCOUNTER 2018-06-01 22:23 | Emergency (ER) | payer MEDICARE ==
[2018-06-01 22:23] VITALS: BMI 21.4
[2018-06-01 22:28] VITALS: BP 139/84; PULSE 85; RESP 16; TEMP 98.3; O2SAT 99
[2018-06-01] MEDS ORDERED: Absorbable Gelatin Sponge Size 12-7 TP ONE (22:42)
--- NOTE | 2018-06-01 22:44 | ED PDOC ---
HPI: General Adult Time Seen by Provider: 06/01/18 22:42 Chief Complaint (Nursing): Wound Check Chief Complaint (Provider): TOE INJURY History Per: Patient (82 Y/O MALE HERE ON XERALTO HERE FOR UNCONTROLLABLE BLEEDING AFTER CUTTING EDGE OF TOE OFF ACCIDENTALLY WHEN CUTTING TOENAILS. NO OTHER COMPLAINTS. TETANUS UP TO DATE (2-3 YEARS AGO)) Past Medical History Reviewed: Historical Data, Nursing Documentation, Vital Signs Vital Signs: Last Vital Signs Temp 98.3 F 06/01/18 22:25 Pulse 85 06/01/18 22:25 Resp 16 06/01/18 22:25 BP 139/84 06/01/18 22:25 Pulse Ox 99 06/01/18 22:25 - Medical History PMH: Arthritis, Atrial Fibrillation, Back Problems, Bronchitis, CHF, HTN Denies: HIV - Surgical History Surgical History: Pacemaker ([email or web address]) - Family History Family History: States: Unknown Family Hx - Immunization History Hx Tetanus Toxoid Vaccination: No Hx Influenza Vaccination: Yes Hx Pneumococcal Vaccination: Yes - Home Medications Home Medications: Ambulatory Orders Medication Instructions Recorded Clopidogrel [Plavix] 75 mg PO DAILY #30 tab 09/23/17 FLUoxetine [Prozac] 20 mg PO DAILY #30 cap 09/23/17 Furosemide [Lasix] 40 mg PO DAILY #30 tab 09/23/17 Losartan [Cozaar] 25 mg PO DAILY #30 tab 09/23/17 Metoprolol Succinate XL [Toprol XL] 75 mg PO DAILY #30 tab 09/23/17 Pantoprazole [Protonix EC Tab] 40 mg PO DAILY #30 ect 09/23/17 Rivaroxaban [Xarelto] 10 mg PO QD5 #30 tab 09/23/17 Rosuvastatin Calcium [Crestor] 5 mg PO DAILY #30 tab 09/23/17 Lidocaine 1 each TP DAILY #10 adh..patch 01/03/18 Ibuprofen [Motrin Tab] 600 mg PO Q8 PRN tab 01/11/18 Sulfamethoxazole/Trimethoprim 1 each PO BID #6 tablet 06/01/18 [Bactrim Ds Tablet] - Allergies Allergies/Adverse Reactions: Allergies Allergy/AdvReac Type Severity Reaction Status Date / Time penicillin V Allergy Severe RASH/HIVES Verified 06/01/18 22:25 Review of Systems ROS Statement: Except As Marked, All Systems Reviewed And Found Negative Physical Exam - Reviewed Nursing Documentation Reviewed: Yes Vital Signs Reviewed: Yes - Physical Exam Appears: Positive for: Well, Non-toxic, No Acute Distress Head Exam: Positive for: ATRAUMATIC, NORMAL INSPECTION, NORMOCEPHALIC Skin: Positive for: Normal Color, Warm, DRY Eye Exam: Positive for: EOMI, Normal appearance, PERRL ENT: Positive for: Normal ENT Inspection Neck: Positive for: Normal, Painless ROM Cardiovascular/Chest: Positive for: Regular Rate, Rhythm Respiratory: Positive for: CNT, Normal Breath Sounds Gastrointestinal/Abdominal: Positive for: Normal Exam, Soft Back: Positive for: Normal Inspection Extremity: Positive for: Normal ROM, Other (SMALL TOE AVULSION NOTED DISTAL LATERAL ASPECT OF FOURTH TOE RIGHT FOOT.) Neurological/Psych: Positive for: Awake, Alert, Normal Tone - ECG O2 Sat by Pulse Oximetry: 99 - Progress ED Course And Treament: VERBAL CONSENT PRIOR TO PROCEDURE GELFOAM PLACED ON TOE AND DRESSING PLACED OVER TOE. Disposition - Clinical Impression Clinical Impression: Toe avulsion - Patient ED Disposition Is Patient to be Admitted: No - Disposition Disposition: Routine/Home Disposition Time: 23:15 Condition: FAIR Additional Instructions: RETURN TO ED IN 24--48 HOURS FOR REPEAT WOUND EVALUATION. Prescriptions: Sulfamethoxazole/Trimethoprim [Bactrim Ds Tablet] 1 each PO BID #6 tablet Instructions: Wound Care (DC)
[2018-06-01] MEDS ORDERED: Absorbable Gelatin Sponge Size 12-7 ONE (23:03)
[2018-06-02] MEDS ORDERED: Absorbable Gelatin Sponge Size 12-7 ONE (00:08)
== END 2018-06-01 23:25 | disposition home or self-care (01) ==
LOC: H.ER 22:23
DX: S91.201A Unspecified open wound of right great toe with damage to nail, initial encounter (principal); X58.XXXA Exposure to other specified factors, initial encounter; Y92.89 Other specified places as the place of occurrence of the external cause; I11.0 Hypertensive heart disease with heart failure; Z88.0 Allergy status to penicillin; Z95.0 Presence of cardiac pacemaker

== ENCOUNTER 2018-06-03 11:56 | Emergency (ER) | payer MEDICARE ==
[2018-06-03 11:57] VITALS: BMI 21.4
[2018-06-03 14:00] LABS: BASO # 0.1 K/uL (0.0-0.2); BASO % 1.3 % (0.0-2.0); EOS # 0.3 K/uL (0.0-0.7); EOS % 4.8 % (0.0-4.0); HEMOGLOBIN 13.1 g/dL (12.0-18.0); LYMPH # 0.6 K/uL (1.0-4.3); LYMPH % 10.4 % (20.0-40.0); MEAN CELL VOLUME 89.6 fl (80.0-94.0); MEAN CORPUSCULAR HEMOGLOBIN 29.5 pg (27.0-31.0); MEAN CORPUSCULAR HGB CONC 32.9 g/dL (33.0-37.0); MEAN PLATELET VOLUME 7.8 fl (7.2-11.7); MONO % 17.3 % (0.0-10.0); NEUT # 3.7 K/uL (1.8-7.0); NEUT % 66.2 % (50.0-75.0); NRBC % 0.1 % (0.0-0.0); RBC 4.44 Mil/uL (4.40-5.90); RED CELL DISTRIBUTION WIDTH 15.5 % (11.5-14.5); WHITE BLOOD COUNT 5.7 K/uL (4.8-10.8)
--- NOTE | 2018-06-03 14:35 | ED PDOC ---
HPI: Wound Care - HPI Time Seen by Provider: 06/03/18 13:14 Chief Complaint (Nursing): Lower Extremity Problem/Injury Chief Complaint (Provider): Wound check History Per: Patient Exam Limitations: no limitations Onset/Duration Of Symptoms: Days (2x) Current Symptoms Are (Timing): Better Location Of Injury: Right: Foot (fourth toe) Severity: Moderate Additional Complaint(s): 83 year old male with a past medical history of CHF, hypertension, and atrial fibrillation presents to the ED for a wound check. Patient was seen here 2x days ago when he cut his right 4th toe while cutting his toenails. Patient is on Xarelto and Plavix. Patient denies having further bleeding or pain. PMD: Ji Baldwin MD Past Medical History Reviewed: Historical Data, Nursing Documentation, Vital Signs Vital Signs: Last Vital Signs Temp 97.6 F 06/03/18 12:34 Pulse 87 06/03/18 12:34 Resp 18 06/03/18 12:34 BP 111/74 06/03/18 12:34 Pulse Ox 97 06/03/18 12:34 BLANCA Report Viewed: Yes - Medical History PMH: Arthritis, Atrial Fibrillation, Back Problems, Bronchitis, CHF, HTN Denies: HIV - Surgical History Surgical History: Pacemaker ([employer]) - Family History Family History: States: No Known Family Hx - Social History Current smoker - smoking cessation education provided: No Ex-Smoker (has not smoked in the last 12 months): Yes Alcohol: Social - Immunization History Hx Tetanus Toxoid Vaccination: No Hx Influenza Vaccination: Yes Hx Pneumococcal Vaccination: Yes - Home Medications Home Medications: Ambulatory Orders Medication Instructions Recorded Clopidogrel [Plavix] 75 mg PO DAILY #30 tab 09/23/17 FLUoxetine [Prozac] 20 mg PO DAILY #30 cap 09/23/17 Furosemide [Lasix] 40 mg PO DAILY #30 tab 09/23/17 Losartan [Cozaar] 25 mg PO DAILY #30 tab 09/23/17 Metoprolol Succinate XL [Toprol XL] 75 mg PO DAILY #30 tab 09/23/17 Pantoprazole [Protonix EC Tab] 40 mg PO DAILY #30 ect 09/23/17 Rivaroxaban [Xarelto] 10 mg PO QD5 #30 tab 09/23/17 Rosuvastatin Calcium [Crestor] 5 mg PO DAILY #30 tab 09/23/17 Lidocaine 1 each TP DAILY #10 adh..patch 01/03/18 Ibuprofen [Motrin Tab] 600 mg PO Q8 PRN tab 01/11/18 Sulfamethoxazole/Trimethoprim 1 each PO BID #6 tablet 06/01/18 [Bactrim Ds Tablet] - Allergies Allergies/Adverse Reactions: Allergies Allergy/AdvReac Type Severity Reaction Status Date / Time Penicillins Allergy RASH Verified 06/03/18 12:31 Review of Systems ROS Statement: Except As Marked, All Systems Reviewed And Found Negative Musculoskeletal: Negative for: Foot Pain ((-) right 4th toe pain, (-) bleeding) Physical Exam - Reviewed Nursing Documentation Reviewed: Yes Vital Signs Reviewed: Yes - Physical Exam Appears: Positive for: Well, Non-toxic, No Acute Distress Head Exam: Positive for: ATRAUMATIC, NORMOCEPHALIC Extremity: Positive for: Other (right foot: deferred to podiatry) Neurological/Psych: Positive for: Awake, Alert, Oriented (3x) - Laboratory Results Result Diagrams: 06/03/18 13:52 - ECG O2 Sat by Pulse Oximetry: 97 (RA) Pulse Ox Interpretation: Normal Medical Decision Making Medical Decision Makin:14 Initial impression: 83 year old male in the ED for a wound check Initial plan: * podiatry evaluation Scribe Attestation: Documented Yeni Reyna, acting as a scribe for Lilo Holden MD. Provider Scribe Attestation: All medical record entries made by the Scribe were at my direction and personally dictated by me. I have reviewed the chart and agree that the record accurately reflects my personal performance of the history, physical exam, medical decision making, and the department course for this patient. I have also personally directed, reviewed, and agree with the discharge instructions and disposition. Disposition - Clinical Impression Clinical Impression: Visit for wound check, Skin avulsion - Disposition Referrals: Leah Butcher DPM [[facility]] - Disposition: Routine/Home Disposition Time: 14:40 Condition: STABLE Instructions: Toe Injury Forms: [facility] (Latvian)
[2018-06-03 15:01] VITALS: BP 124/70; PULSE 83; RESP 16; TEMP 98.6
--- NOTE | 2018-06-03 15:32 | CP.PCM.CON ---
History of Present Illness - History of Present Illness History of Present Illness: Podiatry Consult Note for Dr. Butcher 83M seen in ED for cut right fourth toe. Patient states that he was trimming his nails last night when he accidentally nipped his fourth toe, causing it to bleed. He states that since he has a history of ulcerations and lower extremity wounds he decided that it would be a good idea to come into the ED to have the toe evaluated. He denies any redness, malodor, drainage or other signs of infection to the toe. Denies any recent N/V/F/C/CP/SOB/D Review of Systems - Review of Systems All systems: reviewed and no additional remarkable complaints except Review of Systems: as per HPI Past Patient History - Infectious Disease Hx of Infectious Diseases: None - Past Medical History & Family History Past Medical History?: Yes - Past Social History Alcohol: Social - CARDIAC Hx Atrial Fibrillation: Yes Hx Congestive Heart Failure: Yes Hx Hypertension: Yes Hx Pacemaker: Yes ([employer]) - PULMONARY Hx Bronchitis: Yes - NEUROLOGICAL Hx Neurological Disorder: No - HEENT Hx HEENT Problems: Yes Hx Blind: Yes - ENDOCRINE/METABOLIC Hx Endocrine Disorders: No - HEMATOLOGICAL/ONCOLOGICAL Hx Human Immunodeficiency Virus (HIV): No - INTEGUMENTARY Hx Dermatological Problems: No - MUSCULOSKELETAL/RHEUMATOLOGICAL Hx Arthritis: Yes - GASTROINTESTINAL Hx Gastrointestinal Disorders: No - GENITOURINARY/GYNECOLOGICAL Hx Genitourinary Disorders: No - PSYCHIATRIC Hx Substance Use: No - SURGICAL HISTORY Hx Surgeries: Yes Other/Comment: pacemaker, valve replacement 2014 - ANESTHESIA Hx Anesthesia: Yes Hx Anesthesia Reactions: No Hx Malignant Hyperthermia: No Meds Allergies/Adverse Reactions: Allergies Allergy/AdvReac Type Severity Reaction Status Date / Time Penicillins Allergy RASH Verified 06/03/18 12:31 Physical Exam - Constitutional Appears: Well, Non-toxic, No Acute Distress - Extremities Exam Additional comments: RLE focused exam: Vasc: DP/PT pulses palpable 1/4 b/l. Skin temperature warm to warm from proximal to distal WNL. CFT < 3 seconds to all digits. Minimal edema noted surrounding fourth digit wound Neuro: Epicritic and protective sensation grossly diminished Derm: Superficial cut noted to distal aspect of right fourth digit measuring 0.3 cm x 0.2 cm x 0.1 cm. No erythema, no malodor, no drainage, no other clinical signs of infection noted MSK: Minimal pain on palpation to ulceration site. No gross deformities noted - Neurological Exam Neurological exam: Alert, Oriented x3 - Psychiatric Exam Psychiatric exam: Normal Affect, Normal Mood Results - Vital Signs Recent Vital Signs: Last Vital Signs Temp 98.6 F 06/03/18 14:49 Pulse 83 06/03/18 14:49 Resp 16 06/03/18 14:49 BP 124/70 06/03/18 14:49 Pulse Ox 96 06/03/18 14:49 - Labs Result Diagrams: 06/03/18 13:52 Labs: Laboratory Results - last 24 hr 06/03/18 13:52 WBC 5.7 RBC 4.44 Hgb 13.1 D Hct 39.8 MCV 89.6 D MCH 29.5 MCHC 32.9 L RDW 15.5 H Plt Count 233 MPV 7.8 Neut % (Auto) 66.2 Lymph % (Auto) 10.4 L [place] % (Auto) 17.3 H Eos % (Auto) 4.8 H Baso % (Auto) 1.3 Neut # (Auto) 3.7 Lymph # (Auto) 0.6 L [place] # (Auto) 1.0 H Eos # (Auto) 0.3 Baso # (Auto) 0.1 Assessment & Plan - Assessment and Plan (Free Text) Assessment: 83M seen in ED for cut to right fourth digit Plan: Patient seen and evaluated Plan discussed with Dr. Butcher Absent leukocytosis Wound cleansed with Saline and dressed with Bactroban, DSD Patient to follow up with Dr. Butcher next week for continued care - Date & Time Date: 06/03/18 Time: 15:36
[2018-06-05 10:41] VITALS: O2SAT 97
== END 2018-06-03 14:49 | disposition home or self-care (01) ==
LOC: H.ER 11:56
DX: S99.921A Unspecified injury of right foot, initial encounter (principal); X58.XXXA Exposure to other specified factors, initial encounter; Y92.89 Other specified places as the place of occurrence of the external cause; Z88.0 Allergy status to penicillin